=== PATIENT | male | born 1955 | race Caucasian/White ===

== ENCOUNTER 2016-11-19 15:12 | Inpatient (IN) | payer BC ==
--- NOTE | 2016-11-19 16:11 | XRAY Preliminary Report ---
Exam: XR Chest 1 View IMPRESSION: Mild cardiomegaly, otherwise unremarkable single view chest. [facility] SITE ID: [id number]
--- NOTE | 2016-11-19 16:13 | XRAY Report ---
EXAM: CHEST RADIOGRAPHY EXAM DATE: 11/19/2016 03:57 PM. CLINICAL HISTORY: Dyspnea. COMPARISON: 11/08/2009. TECHNIQUE: 1 view. FINDINGS: Lungs/Pleura: No focal opacities evident. No pleural effusion. No pneumothorax. Mediastinum: Mild cardiomegaly. Other: No bony abnormality noted. IMPRESSION: Mild cardiomegaly, otherwise unremarkable single view chest. [facility] Referring Provider Line: [phone] SITE ID: [id number]
--- NOTE | 2016-11-19 16:18 | ED Physician Documentation ---
PD HPI DYSPNEA - Stated complaint Stated Complaint: SOA - Chief complaint Chief Complaint: Resp - History obtained from History obtained from: Patient, Family - History of Present Illness Timing - onset: How many days ago (2) Timing - onset during: Sleep Timing - duration: Days (2) Timing - details: Gradual onset Pain level max: 0 Pain level now: 0 Inciting event(s): URI (rhinorrhea, congestion) Improved by: BiPAP / CPAP (wears CPAP at night) Worsened by: Exertion, Coughing, Allergens Associated symptoms: Cough (dry), Wheezing. No: Fever, Hemoptysis, Chest pain / discomfort, Palpitations, Diaphoresis, Bilateral edema Similar symptoms before: Diagnosis (asthma) Recently seen: Not recently seen - Additional information Additional information: Patient states that he feels like he is having a hard time breathing today. Has had rhinorrhea and congestion for the past 2 days. Has not taken anything at home. Has had albuterol inhalers in the past for this. No fevers. No chest pain. He states that his doctor did increase his metoprolol from 50 mg to 100 mg daily last week. Has felt slightly lightheaded. Review of Systems Ten Systems: 10 systems reviewed and negative Constitutional: denies: Fever, Chills Nose: reports: Rhinorrhea / runny nose, Congestion Respiratory: reports: Dyspnea, Wheezing GI: denies: Abdominal Pain, Nausea, Vomiting, Diarrhea Skin: denies: Rash Musculoskeletal: denies: Neck pain, Back pain Neurologic: denies: Focal weakness, Numbness, Confused, Altered mental status, Headache PD PAST MEDICAL HISTORY - Past Medical History Past Medical History: Yes Cardiovascular: Hypertension, High cholesterol, [place] Respiratory: None Neuro: None Endocrine/Autoimmune: Type 2 diabetes GI: None : None HEENT: None Psych: None Musculoskeletal: None Derm: None - Past Surgical History Past Surgical History: Yes Cardiovascular: Coronary stent - Present Medications Home Medications: Ambulatory Orders Medication Instructions Recorded Confirmed Insulin Lispro [Humalog] 28 units SQ QID 02/04/13 11/19/16 Losartan [Cozaar] 100 mg PO DAILY 02/04/13 11/19/16 Spironolactone [Aldactone] 25 mg PO DAILY 02/04/13 02/04/13 Trazodone HCl 50 mg PO HS 02/04/13 11/19/16 Amitriptyline HCl 50 mg PO QPM 11/21/15 11/19/16 Amlodipine Besylate 5 mg PO DAILY 11/21/15 11/19/16 Aspirin [Zoie] 325 mg PO DAILY 11/21/15 11/19/16 Atorvastatin Calcium 80 mg PO DAILY 11/21/15 11/19/16 Esomeprazole Magnesium 40 mg PO DAILY 11/21/15 11/19/16 Metoprolol Succinate 50 mg PO BID 11/21/15 11/19/16 - Allergies Allergies/Adverse Reactions: Allergies Allergy/AdvReac Type Severity Reaction Status Date / Time Sulfa (Sulfonamide Allergy unknown Verified 11/19/16 15:21 Antibiotics) - Social History Does the pt smoke?: No Smoking Status: Never smoker Does the pt drink ETOH?: Yes Does the pt have substance abuse?: No - Immunizations Immunizations are current?: No Immunizations: TDAP >10years/unknown - POLST Patient has POLST: No PD ED PE NORMAL - Vitals Vital signs reviewed: Yes - General General: Alert and oriented X 3, No acute distress - HEENT HEENT: Moist mucous membranes, Pharynx benign - Neck Neck: Supple, no meningeal sign - Cardiac Cardiac: RRR - Respiratory Respiratory: No respiratory distress, Other (Decreased breath sounds bilaterally with mild wheeze) - Abdomen Abdomen: Normal bowel sounds, Non tender, Non distended - Back Back: No CVA TTP, No spinal TTP - Derm Derm: Warm and dry, No rash - Extremities Extremities: No calf tenderness / cord - Neuro Neuro: Alert and oriented X 3 - Psych Psych: Normal mood, Normal affect Results - Vitals Vitals: Vital Signs - 24 hr 11/19/16 11/19/16 11/19/16 15:19 16:08 17:20 Temperature 36.1 C L Heart Rate 52 L 47 L 49 L Respiratory 20 24 27 H Rate Blood Pressure 186/75 H O2 Saturation 96 93 Oxygen O2 Source Room air - EKG (time done) 1541 Rate: Rate (enter#) (51) Rhythm: Other (sinus arrhythmia) [place]: Normal Intervals: Normal [place] QRS: Normal Ischemia: T wave inversion (I, aVL) Compare to prior EKG: Old EKG unavailable 1830 Rate: Rate (enter#) (35) Rhythm: Sinus bradycardia [place]: Normal Intervals: Normal [place] QRS: Normal Ischemia: Normal ST segments Computer interpretation: Agree with computer - Labs Labs: Laboratory Tests 11/19/16 11/19/16 11/19/16 16:00 16:00 16:00 WBC 9.8 RBC 3.87 L Hgb 11.5 L Hct 34.5 L MCV 89.1 MCH 29.8 MCHC 33.4 RDW 13.3 Plt Count 208 MPV 8.6 Neut # 7.4 H Lymph # 1.5 [place] # 0.7 Eos # 0.1 Baso # 0.1 Absolute Nucleated RBC 0.00 Nucleated RBCs 0.0 VBG pH VBG pCO2 VBG pO2 VBG HCO3 VBG Total CO2 VBG O2 Saturation VBG Base Excess Sodium 131 L Potassium 6.5 H* Chloride 100 L Carbon Dioxide 20 L Anion Gap 11.0 BUN 37 H Creatinine 2.3 H Estimated GFR (MDRD) 29 L Glucose 542 H* Calcium 8.7 Total Bilirubin 0.7 AST 20 ALT 22 Alkaline Phosphatase 68 Troponin I 0.04 B-Natriuretic Peptide Total Protein 7.1 Albumin 3.5 Globulin 3.6 Albumin/Globulin Ratio 1.0 Lipase 11 L Serum Ketones 11/19/16 11/19/16 11/19/16 16:00 16:00 17:01 WBC RBC Hgb Hct MCV MCH MCHC RDW Plt Count MPV Neut # Lymph # [place] # Eos # Baso # Absolute Nucleated RBC Nucleated RBCs VBG pH 7.367 VBG pCO2 31.0 L VBG pO2 184.4 H VBG HCO3 17.4 L VBG Total CO2 18.3 L VBG O2 Saturation 98.9 H VBG Base Excess -6.8 L Sodium Potassium Chloride Carbon Dioxide Anion Gap BUN Creatinine Estimated GFR (MDRD) Glucose Calcium Total Bilirubin AST ALT Alkaline Phosphatase Troponin I B-Natriuretic Peptide 463 H Total Protein Albumin Globulin Albumin/Globulin Ratio Lipase Serum Ketones MODERATE H - Rads (name of study) cxr Radiology: Prelim report reviewed, EMP read contemporaneously, See rad report ( Mild cardiomegaly, otherwise unremarkable single view chest. ) PD MEDICAL DECISION MAKING - ED course Complexity details: reviewed old records, reviewed results, re-evaluated patient , considered differential, d/w patient, d/w family, d/w netsuite consultant ED course: Patient is a 61-year-old gentleman who presents to the emergency department is found to be in mild DKA, sinus bradycardia, likely secondary to metoprolol and amlodipine use. Also found to be in acute renal failure and hyperkalemia. He was treated with DuoNeb for the wheezing which resolved. Given insulin for the mild DKA. Also given IV hydration. Discussed the case with the hospitalist, Dr. Montgomery who accepts the patient. This document was made in part using voice recognition software. While efforts are made to proofread this document, sound alike and grammatical errors may occur. Departure - Departure Disposition: 64 [facility] DC/Xfer Clinical Impression: Hyperglycemia, Bradycardia, Hyperkalemia Acute renal failure Qualifiers: Acute renal failure type: unspecified Qualified Code(s): N17.9 - Acute kidney failure, unspecified DKA (diabetic ketoacidosis) Qualifiers: Diabetes mellitus type: due to underlying condition Diabetes mellitus complication detail: without coma Qualified Code(s): E08.10 - Diabetes mellitus due to underlying condition with ketoacidosis without coma Condition: Stable Discharge Date/Time: 11/19/16 18:33
[2016-11-19] MEDS ORDERED: IPRATROPIUM/ALBUTEROL 3 ML NEB INH STA (16:25)
[2016-11-19 16:33] LABS: BASOPHILS # (AUTO) 0.1 10^3/uL (0.0-0.1); BASOPHILS % (AUTO) 1.1 %; EOSINOPHILS # (AUTO) 0.1 10^3/uL (0.0-0.7); EOSINOPHILS % (AUTO) 1.3 %; HCT - HEMATOCRIT 34.5 % (42.0-52.0); HGB - HEMOGLOBIN 11.5 g/dL (14.0-18.0); LYMPHOCYTES # (AUTO) 1.5 10^3/uL (1.5-3.5); LYMPHOCYTES % (AUTO) 15.4 %; MEAN CORPUSCULAR HEMOGLOBIN 29.8 pg (27.0-31.0); MEAN CORPUSCULAR HGB CONC 33.4 g/dL (32.0-36.0); MEAN CORPUSCULAR VOLUME 89.1 fL (80.0-94.0); MEAN PLATELET VOLUME 8.6 fL (7.4-11.4); MONOCYTES # (AUTO) 0.7 10^3/uL (0.0-1.0); MONOCYTES % (AUTO) 6.9 %; NEUTROPHILS # (AUTO) 7.4 10^3/uL (1.5-6.6); NEUTROPHILS % (AUTO) 75.3 %; RED BLOOD COUNT 3.87 10^6/uL (4.70-6.10); RED CELL DISTRIBUTION WIDTH 13.3 % (12.0-15.0); UNCORRECTED WHITE BLOOD COUNT 9.8 x10^3/uL; WHITE BLOOD COUNT 9.8 x10^3/uL (4.8-10.8)
[2016-11-19 16:37] LABS: BILIRUBIN,TOTAL 0.7 mg/dL (0.2-1.0); CALCIUM 8.7 mg/dL (8.5-10.3); CREATININE 2.3 mg/dL (0.6-1.2); TOTAL PROTEIN 7.1 g/dL (6.7-8.2)
[2016-11-19 16:38] LABS: POTASSIUM 6.5 mmol/L (3.5-5.0)
[2016-11-19] MEDS ORDERED: INSULIN REGULAR HUMAN 100 UNIT/1 ML 10 ML MDV SUBQ STA (16:44)
[2016-11-19] MEDS ORDERED: SODIUM CHLORIDE 0.9% 1,000 ML IV ONE ×2 (16:44)
[2016-11-19] MEDS ORDERED: INSULIN REGULAR HUMAN 100 UNIT/1 ML 10 ML MDV ONE (16:49)
[2016-11-19] MEDS ORDERED: IPRATROPIUM/ALBUTEROL 3 ML NEB INH ONE (16:53)
[2016-11-19] MEDS ORDERED: ACETAMINOPHEN 325 MG TABLET PO STA (17:01)
[2016-11-19 17:11] LABS: VBG BASE EXCESS -6.8 mmol/L (-2 - +2); VBG OXYGEN SATURATION 98.9 % (60-80); VBG PH 7.367 (7.31-7.41); VBG TOTAL CO2 18.3 mmol/L (24-29)
[2016-11-19] MEDS ORDERED: ACETAMINOPHEN 325 MG TABLET PO ONE (17:14)
[2016-11-19] MEDS ORDERED: SODIUM CHLORIDE FLUSH 0.9% 10 ML SYRINGE IVP PRN (17:25)
[2016-11-19] MEDS ORDERED: ONDANSETRON 4 MG/2 ML VIAL IVP PRN (17:25)
[2016-11-19] MEDS ORDERED: ONDANSETRON ODT 4 MG TABLET TL PRN (17:25)
[2016-11-19] MEDS ORDERED: INSULIN REGULAR HUMAN 100 UNIT in SODIUM CHLORIDE 0.9% 100ML 99 ML IV SCH (18:00)
[2016-11-19] MEDS: SODIUM CHLORIDE 0.9% 1,000 ML IV SCH (18:50)
[2016-11-19] MEDS: HYDROcod/ACETAM 5/325 MG TABLET PO PRN (19:03)
[2016-11-19 19:09] LABS: CALCIUM 8.3 mg/dL (8.5-10.3); CREATININE 2.3 mg/dL (0.6-1.2); MAGNESIUM 2.2 mg/dL (1.7-2.8)
[2016-11-19 19:11] LABS: POTASSIUM 7.2 mmol/L (3.5-5.0)
[2016-11-19] MEDS: ALBUTEROL NEB 2.5 MG/3 ML INH PRN (20:20)
[2016-11-19 20:22] LABS: HEMOGLOBIN A1C 0.9 g/dL
[2016-11-19 21:12] LABS: CALCIUM 8.1 mg/dL (8.5-10.3); CREATININE 2.1 mg/dL (0.6-1.2); MAGNESIUM 1.9 mg/dL (1.7-2.8); POTASSIUM 4.4 mmol/L (3.5-5.0)
[2016-11-19 22:50] LABS: BUN - BLOOD UREA NITROGEN 33 mg/dL (6-20); CALCIUM 8.1 mg/dL (8.5-10.3); CARBON DIOXIDE - CO2 21 mmol/L (21-32); CHLORIDE 108 mmol/L (101-111); CREATININE 1.9 mg/dL (0.6-1.2); GFR - MDRD 36 (>89); GLUCOSE 257 mg/dL (70-100); POTASSIUM 4.3 mmol/L (3.5-5.0); SODIUM 137 mmol/L (135-145)
[2016-11-19 22:56] LABS: PHOSPHORUS 2.5 mg/dL (2.5-4.6)
[2016-11-19] MEDS: INSULIN GLARGINE 300 UNIT/3 ML PEN SUBQ SCH (23:31)
[2016-11-19] MEDS: SPIRONOLACTONE 25 MG TABLET PO SCH (23:35)
[2016-11-19] MEDS: SODIUM CHLORIDE FLUSH 0.9% 10 ML SYRINGE IVP SCH (23:35)
[2016-11-19] MEDS: traZODone 50 MG TABLET PO SCH (23:36)
[2016-11-19] MEDS: LOSARTAN 50 MG TABLET PO SCH (23:36)
[2016-11-19] MEDS: amLODIPine 5 MG TABLET PO SCH (23:37)
--- NOTE | 2016-11-20 02:07 | PROVIDER PROGRESS NOTE ---
Assessment/Plan - Current Meds Current Meds: Current Medications Generic Name Dose Route Start Last Admin Trade Name Freq PRN Reason Stop Dose Admin Acetaminophen/Hydrocodone Bitart 1 tab 11/19/16 17:25 11/19/16 19:03 [place] 5/325 PO 1 tab Q4HR PRN Administration Pain 5 to 7 Albuterol 2.5 mg 11/19/16 17:25 11/19/16 20:20 INH 2.5 mg Q4HR PRN Administration Wheezing Amlodipine Besylate 5 mg 11/19/16 23:00 11/19/16 23:37 Norvasc PO 5 mg DAILY ELLIOT Administration Sodium Chloride 1,000 mls @ 100 mls/hr 11/19/16 18:00 11/19/16 18:50 Normal Saline 0.9% IV 100 mls/hr .Q10H ELLIOT Administration Insulin Glargine 80 unit 11/19/16 23:00 11/19/16 23:31 Lantus Solostar SUBQ 80 unit BID ELLIOT Administration Losartan Potassium 100 mg 11/19/16 23:00 11/19/16 23:36 Cozaar PO 100 mg DAILY ELLIOT Administration Sodium Chloride 10 ml 11/19/16 22:00 11/19/16 23:35 Normal Saline Flush 0.9% IVP 10 ml Q8HR ELLIOT Administration Spironolactone 25 mg 11/19/16 23:00 11/19/16 23:35 Aldactone PO 25 mg DAILY ELLIOT Administration Trazodone HCl 50 mg 11/19/16 22:41 11/19/16 23:36 Desyrel PO 50 mg QPM ELLIOT Administration - Lab Result Fish Bone Diagrams: 11/19/16 16:00 11/19/16 22:35 - Additional Planning My Orders: My Active Orders 11/19/16 22:34 Blood Glucose Checks - Eating [RC] 0800,1200,1700,2100 Initiate Hypoglycemia Protocol [RC] .protocol 11/19/16 22:41 traZODone [Desyrel] 50 mg PO QPM 11/19/16 23:00 Insulin Glargine [Lantus Solostar] 80 unit SUBQ BID Losartan [Cozaar] 100 mg PO DAILY Spironolactone [Aldactone] 25 mg PO DAILY amLODIPine [Norvasc] 5 mg PO DAILY 11/19/16 Breakfast Carb-controlled Diet [DIET] 11/20/16 01:03 Home CPAP/BiPAP [RC] .ONCE 11/20/16 08:00 Insulin Aspart [NovoLOG] 2 - 10 unit SUBQ 0800,1200,1700,2100 Insulin Aspart [NovoLOG] 30 unit SUBQ TIDWM 11/20/16 09:00 Aspirin [Zoie] 325 mg PO DAILY Atorvastatin [Lipitor] 80 mg PO DAILY 11/20/16 21:00 Amitriptyline [Elavil] 50 mg PO QPM Objective Vital Signs: Vital Signs - 24 hr 11/19/16 11/19/16 11/19/16 17:45 17:48 18:00 Temperature Heart Rate 45 L 42 L Heart Rate [ Monitoring electrodes] Respiratory 23 24 Rate Blood Pressure 200/74 H 192/58 H Blood Pressure [Left Brachial artery] O2 Saturation 88 L 93 93 11/19/16 11/19/16 11/19/16 18:45 19:06 20:00 Temperature 36.8 C Heart Rate Heart Rate [ 45 L 45 L 54 L Monitoring electrodes] Respiratory 25 H 24 23 Rate Blood Pressure Blood Pressure 194/65 H 190/64 H 172/70 H [Left Brachial artery] O2 Saturation 95 94 94 11/19/16 11/19/16 11/19/16 20:20 21:00 22:00 Temperature Heart Rate 60 Heart Rate [ 65 68 Monitoring electrodes] Respiratory 20 24 20 Rate Blood Pressure Blood Pressure 193/67 H 183/67 H [Left Brachial artery] O2 Saturation 94 97 11/19/16 11/20/16 11/20/16 23:00 00:05 01:00 Temperature 36.6 C Heart Rate Heart Rate [ 64 63 60 Monitoring electrodes] Respiratory 20 20 16 Rate Blood Pressure Blood Pressure 172/66 H 162/66 H 142/58 H [Left Brachial artery] O2 Saturation 95 94 94 Oxygen O2 Source CPAP I&O (Last 24 Hrs): Intake and Output Totals x24h 11/18/16 11/19/16 11/20/16 23:59 23:59 23:59 Intake Total 444 308 Output Total 260 Balance 184 308 - Results Results: Laboratory Results WBC 9.8 x10^3/uL (4.8-10.8) 11/19/16 16:00 RBC 3.87 10^6/uL (4.70-6.10) L 11/19/16 16:00 Hgb 11.5 g/dL (14.0-18.0) L 11/19/16 16:00 Hct 34.5 % (42.0-52.0) L 11/19/16 16:00 MCV 89.1 fL (80.0-94.0) 11/19/16 16:00 MCH 29.8 pg (27.0-31.0) 11/19/16 16:00 MCHC 33.4 g/dL (32.0-36.0) 11/19/16 16:00 RDW 13.3 % (12.0-15.0) 11/19/16 16:00 Plt Count 208 10^3/uL (130-450) 11/19/16 16:00 MPV 8.6 fL (7.4-11.4) 11/19/16 16:00 Neut # 7.4 10^3/uL (1.5-6.6) H 11/19/16 16:00 Lymph # 1.5 10^3/uL (1.5-3.5) 11/19/16 16:00 [place] # 0.7 10^3/uL (0.0-1.0) 11/19/16 16:00 Eos # 0.1 10^3/uL (0.0-0.7) 11/19/16 16:00 Baso # 0.1 10^3/uL (0.0-0.1) 11/19/16 16:00 Absolute Nucleated RBC 0.00 x10^3/uL 11/19/16 16:00 Nucleated RBCs 0.0 /100WBC 11/19/16 16:00 VBG pH 7.367 (7.31-7.41) 11/19/16 17:01 VBG pCO2 31.0 mmHg (41-51) L 11/19/16 17:01 VBG pO2 184.4 mmHg (25-47) H 11/19/16 17:01 VBG HCO3 17.4 mmol/L (23-28) L 11/19/16 17:01 VBG Total CO2 18.3 mmol/L (24-29) L 11/19/16 17:01 VBG O2 Saturation 98.9 % (60-80) H 11/19/16 17:01 VBG Base Excess -6.8 mmol/L (-2 - +2) L 11/19/16 17:01 Sodium 137 mmol/L (135-145) 11/19/16 22:35 Potassium 4.3 mmol/L (3.5-5.0) 11/19/16 22:35 Chloride 108 mmol/L (101-111) 11/19/16 22:35 Carbon Dioxide 21 mmol/L (21-32) 11/19/16 22:35 Anion Gap 8.0 (6-13) 11/19/16 22:35 BUN 33 mg/dL (6-20) H 11/19/16 22:35 Creatinine 1.9 mg/dL (0.6-1.2) H 11/19/16 22:35 Estimated GFR (MDRD) 36 (>89) L 11/19/16 22:35 Glucose 257 mg/dL (70-100) H 11/19/16 22:35 POC Whole Bld Glucose 190 mg/dL (70 - 100) H 11/19/16 23:35 Glycated Hemoglobin 9.1 % (4.6-6.2) H 11/19/16 18:23 Estim Average Glucose 214 (70-100) H 11/19/16 18:23 Calcium 8.1 mg/dL (8.5-10.3) L 11/19/16 22:35 Ionized Calcium YES 11/19/16 22:35 Phosphorus 2.5 mg/dL (2.5-4.6) 11/19/16 22:35 Magnesium 2.0 mg/dL (1.7-2.8) 11/19/16 22:35 Total Bilirubin 0.7 mg/dL (0.2-1.0) 11/19/16 16:00 AST 20 IU/L (10-42) 11/19/16 16:00 ALT 22 IU/L (10-60) 11/19/16 16:00 Alkaline Phosphatase 68 IU/L (42-121) 11/19/16 16:00 Troponin I 0.04 ng/mL (<0.49) 11/19/16 16:00 B-Natriuretic Peptide 463 pg/mL (5-100) H 11/19/16 16:00 Total Protein 7.1 g/dL (6.7-8.2) 11/19/16 16:00 Albumin 3.5 g/dL (3.2-5.5) 11/19/16 16:00 Globulin 3.6 g/dL (2.1-4.2) 11/19/16 16:00 Albumin/Globulin Ratio 1.0 (1.0-2.2) 11/19/16 16:00 Lipase 11 U/L (22-51) L 11/19/16 16:00 Serum Ketones MODERATE (NEGATIVE) H 11/19/16 16:00
--- NOTE | 2016-11-20 02:19 | HISTORY & PHYSICAL EXAMINATION ---
Chief Complaint - Chief Complaint Chief Complaint: difficulty breathing History of Present Illness - Admitted From Admitted From:: Emergency department - History Obtained From Records Reviewed: yes History obtained from: patient Exam Limitations: none - History of Present Illness HPI Comment/Other: Patient is a 61-year-old gentleman with a past medical history significant for hypertension, hyperlipidemia, coronary artery disease status post 3 stents, poorly controlled diabetes, obstructive sleep apnea on CPAP, peripheral neuropathy, retinopathy, chronic kidney disease and asthma who presented to the emergency department with a chief complaint of difficulty breathing. The patient states he was in his normal state of health until he woke up this morning he states that when he woke up he felt as though his nose is plugged up and he could not breathe. He states he was able to take short breaths but could not get a deep breath. He denies having had any fevers or chills but does admit to some chest pain. The patient states that the pain occurs when he takes a deep breath and it keeps him from taking deeper breaths. The patient denies any runny nose or sore throat he denies any myalgias or generalized weakness. The patient did admit to chronic constipation and stated that sometimes he will go off week without having a bowel movement and then he'll have to go multiple times a day. The patient denied any headaches, blurred vision, stiff neck or focal neurologic deficits. The patient denied any polydipsia or polyuria. The patient states that he is very noncompliant with his medications. He states that he takes his blood pressure medications when he feels like it and is not taking his insulin. The patient is supposed to be on Humalog U 500 four times a day but states he takes it maybe one or 2 times. On presentation to the emergency department the patient was afebrile but he was very hypertensive with blood pressure in the 180s to 200 systolic. The patient otherwise had some mild hypoxia down to 88% on room air and was mildly tachypneic but did not appear to be in any significant distress. The patient's initial lab work revealed that he was quite dehydrated as he had a sodium of 131 , potassium of 6.5, creatinine of 2.3 increased from a baseline of 1.3 just one year earlier and had a blood glucose of 542. The patient was not in DKA as his pH was 7.36, he did have moderate serum ketones but had no anion gap. Attempt was made to hydrate the patient in the emergency department with 1 L bolus of normal saline he was also given subcutaneous insulin and started on an insulin drip. The patient's labs were repeated and his potassium was up to 7.2 creatinine had not improved and glucose was still 509. It did not appear as though the patient could be treated in the emergency department for his dehydration and acute renal failure with hyperglycemia. Therefore he was placed in observation in the ICU as he was on an insulin drip. From a respiratory standpoint the patient did have some wheezing and was treated with a nebulizer treatment but remained hypoxic however his chest x-ray did not reveal any acute process. Review of Systems - Constitutional Constitutional: reports: Poor appetite. denies: Fatigue, Fever, Chills, Malaise , Weakness, Diaphoresis, Night sweats, Weight gain, Weight loss - Eyes Eyes: reports: Blurred vision, Spots in vision, Vision loss. denies: Pain, Irritation, Field loss, Dipolpia - Ears, Nose & Throat Ears, Nose & Throat: reports: Nasal discharge, Nasal congestion, Postnasal drainage. denies: Ear pain, Hearing loss, Hearing aids, Tinnitus, Vertigo, Nasal pain, Nosebleeds, Nasal obstruction, Sore throat, Hoarseness, Mouth lesions, Bleeding gums - Cardiovascular Cariovascular: reports: Chest pain, Exertional dyspnea, Decr. exercise tolerance. denies: Irregular heart rate, Palpitations, Edema, Lightheadedness, Syncope, Orthopnea - Respiratory Respiratory: reports: Cough, Sputum production, Wheezing, SOB at rest, SOB with exertion, Apnea, Pleuritic pain. denies: Snoring, Hemoptysis, Orthopnea, Stridor - Gastrointestinal Gastrointestinal: reports: Constipation, Poor appetite. denies: Abdominal pain , Abdominal distention, Diarrhea, Change in bowel habits, Black stools, Bloody stools, Nausea, Vomiting, Bile emesis, Coffee grounds emesis, Bloating - Genitourinary Genitourinary: denies: Dysuria, Frequency, Urgency, Hematuria, Incontinence, Flank pain, Nocturia - Musculoskeletal Musculoskeletal: denies: Muscle pain, Back pain, Muscle aches, Stiffness, Limited range of motion, Muscle weakness, Joint pain, Joint swelling - Integumentary Integumentary: denies: Rash, Pruritis, Lesions, Dryness - Neurological Neurological: denies: General weakness, Focal weakness, Headache, Dizziness, Numbness, Abnormal gait, Seizures - Psychiatric Psychiatric: denies: Depression, Anxiety - Endocrine Endocrine: denies: Polyuria, Polydypsia, Polyphagia, Intolerance to cold, Intolerance to heat - Hematologic/Lymphatic Hematologic/Lymphatic: denies: Anemia, Bruising, Petechiae, Lymphadenopathy History - Past Medical History Cardiovascular: reports: Hypertension, High cholesterol, Coronary artery disease (History of 3 stents ), DE (CAD with 3 stents) Respiratory: reports: Asthma, Shortness of breath, Sleep apnea, CPAP use Neuro: reports: Peripheral neuropathy Endocrine/Autoimmune: reports: Type 2 diabetes GI: reports: Ulcers, Chronic constipation : reports: Renal insuffiency HEENT: reports: Chronic hearing loss, Other (Diabetic Retinopathy) Psych: reports: ADD/ADHD Musculoskeletal: reports: Fatigue Derm: reports: None MRSA Hx?: Yes - Past Surgical History Ortho: reports: Shoulder arthroplasty Cardiovascular: reports: Coronary stent HEENT: reports: Tonsil/Adenoidectomy - Family & Social History Family History: Mother: Cancer (Mom with Breast Ca), Diabetes, Type 2 ( of complications of DM), Father: CAD ( of a heart attack), Brother: ( Not from any medical illinesses), Other family: Alcoholism (Daughter) Living arrangement: At home Living Situation: With spouse/s.o. Social History Notes: The patient lives in [facility] with his second he has lived there for 17 years. He has been to his second since 2002. He is originally from [facility]. He is retired. He has one daughter and one son from a previous marriage. He has 2 stepchildren. He has never smoked. He drinks about 2 glasses of wine weekly. He does smoke marijuana daily he states he takes 2-3hits a day. - Substance History Use: Uses substance without health or social issues: Alcohol, Cannabis Abuse: Recurrent use of substance despite neg consequences: NONE Dependence: Experiences withdrawal or developed tolerances: NONE - POLST Patient has POLST: No POLST Status: Full Code Meds/Allgy - Home Medications Home Medications: Ambulatory Orders Medication Instructions Recorded Confirmed Insulin Lispro [Humalog] 28 units SQ QID 02/04/13 11/19/16 Losartan [Cozaar] 100 mg PO DAILY 02/04/13 11/19/16 Spironolactone [Aldactone] 25 mg PO DAILY 02/04/13 02/04/13 Trazodone HCl 50 mg PO HS 02/04/13 11/19/16 Amitriptyline HCl 50 mg PO QPM 11/21/15 11/19/16 Amlodipine Besylate 5 mg PO DAILY 11/21/15 11/19/16 Aspirin [Zoie] 325 mg PO DAILY 11/21/15 11/19/16 Atorvastatin Calcium 80 mg PO DAILY 11/21/15 11/19/16 Esomeprazole Magnesium 40 mg PO DAILY 11/21/15 11/19/16 Metoprolol Succinate 50 mg PO BID 11/21/15 11/19/16 - Allergies Allergies/Adverse Reactions: Allergies Allergy/AdvReac Type Severity Reaction Status Date / Time Sulfa (Sulfonamide Allergy unknown Verified 11/19/16 15:21 Antibiotics) Exam - Vital Signs Reviewed Vital Signs: Yes Vital Signs: Vital Signs x48h Temp Pulse Pulse Resp BP Pulse Ox 11/20/16 01:00 60 16 142/58 H 94 11/20/16 00:05 36.6 C 63 20 162/66 H 94 11/19/16 23:00 64 20 172/66 H 95 11/19/16 22:00 68 20 183/67 H 97 11/19/16 21:00 65 24 193/67 H 94 11/19/16 20:20 60 20 11/19/16 20:00 54 L 23 172/70 H 94 11/19/16 19:06 36.8 C 45 L 24 190/64 H 94 11/19/16 18:45 45 L 25 H 194/65 H 95 - Physical Exam General Appearance: positive: No acute distress, Alert, Other (Obese) Eyes Bilateral: positive: Normal inspection, PERRL, EOMI, No lid inflammation, Conjunctivae nml, No scleral icterus ENT: positive: ENT inspection nml, Pharynx nml, Dry mucous membranes. negative : Purulent nasal drainage, Pharyngeal erythema, Oral lesions Neck: positive: Nml inspection, Thyroid nml, No JVD, Trachea midline. negative : Thyromegaly, Lymphadenopathy (R), Lymphadenopathy (L) Respiratory: positive: Chest non-tender, No respiratory distress, Wheezes (Mild bilateral scattered). negative: Rales, Rhonchi Cardiovascular: positive: Regular rate & rhythm, No murmur, No gallop Peripheral Pulses: positive: 2+ Abdomen: positive: Non-tender, No organomegaly, Nml bowel sounds, No distention , Other (Obese). negative: Guarding, Rebound, Hepatomegaly Back: positive: Nml inspection. negative: CVA tenderness (R), CVA tenderness (L ) Skin: positive: Color nml, No rash, Warm. negative: Cyanosis, Pallor Extremities: positive: Non-tender, Full ROM, Nml appearance, Pedal edema ( Bilateral ankle edema) Neurologic/Psychiatric: positive: Oriented x3, CN's nml (2-12), Motor nml, Sensation nml, Mood/affect nml Conclusion/Plan - Problem List (1) Dehydration Conclusion/Plan: On presentation to the emergency department the patient appeared very dry. Is is likely secondary to persistent hyper glycemia as the patient's glucose was in the 500s. Also the patient admitted to decreased appetite and decreased oral intake over the last day. Patient denied any diarrhea nausea or vomiting. Patient's lab work was consistent with marked dehydration as his sodium was 131 , potassium was elevated to 6.5 his chloride was low down to 100 and he appear to have acute kidney injury with a creatinine of 2.3 from a baseline of 1.3. The patient also appeared very dry on examination. Plan: IV fluids Encourage oral fluids Placed on insulin drip to correct hyperglycemia Monitor electrolytes (2) MICHAELLE (acute kidney injury) Conclusion/Plan: Patient's baseline creatinine is 1.3 from 1 year ago Patient has poorly controlled diabetes and has chronic kidney disease on presentation his creatinine is 2.3 this could be progression of his EKG however it appears more likely to be acute kidney injury. The patient appears to have prerenal azotemia as he does have an elevated BUN low sodium elevated glucose and appears very dry on examination. Plan: Give IV fluids aggressively Hold any nephrotoxic agents Monitor creatinine closely if not improving with IV fluid will get renal ultrasound to rule out obstruction Monitor potassium if not improving this is an indication for dialysis although patient is making good urine and potassium will likely improve. (3) Hyperkalemia Conclusion/Plan: Patient presented with hyperkalemia initial potassium was 6.5. Patient was given IV fluids and place on insulin drip and repeat potassium was still 7.2. Hyperkalemia is likely multifactorial secondary to acute kidney injury, severe hyperglycemia, use of potassium sparing diuretics and use of angiotensin receptor samantha at home for hypertension. EKG shows peaked T waves in the anterior leads Plan: Hold spironolactone and Cozaar Start insulin drip Give calcium gluconate to stabilize myocardium Consider Kayexalate if potassium not improving Monitor potassium closely Consider dialysis and transfer if potassium not improving (4) Hyperglycemia due to type 2 diabetes mellitus Conclusion/Plan: The patient presents with dehydration and severely elevated glucose up to 542 on presentation. Patient has acute kidney injury with hyperkalemia and hyponatremia. The patient does not have polyuria or polydipsia there is positive serum ketones but pH is normal and there is no anion gap. Patient is mentating normally his does not appear to be hyper osmolar nonketotic hyperglycemia or DKA Hyperglycemia is likely secondary to noncompliance with insulin and diet. Plan: Given patient's severe hyperkalemia and acute kidney injury we will place the patient on an insulin drip and observe in the ICU Once hyperkalemia improves and blood sugars are less than 300 we will stop insulin drip and start on subcutaneous insulin. Patient on Humalog U 500 4 times a day at home but noncompliant Once blood sugars improve we will place patient on Lantus 80 units twice a day and moderate to high dose sliding scale insulin Diabetic diet Nutrition consult Counseling on need for medication compliance. 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 Patient will be continued on home dose of amlodipine however we'll be holding patient's Aldactone and Cozaar until hyperkalemia has resolved. Monitor blood pressure closely Patient counseled on need for medication compliance Qualifiers: Hypertension type: essential hypertension Qualified Code(s): I10 - Essential (primary) hypertension (6) Hyponatremia Conclusion/Plan: Patient appears to have hypovolemic hyponatremia as he is dehydrated on examination and on lab work. Also there is some pseudohyponatremia secondary to severe hyperglycemia Patient will be given IV fluids and we will recheck his sodium (7) URI (upper respiratory infection) Conclusion/Plan: The patient initially presented for difficulty breathing cough and shortness of air. Patient was mildly hypoxic on presentation, tachypnea and had some wheezing on examination Chest x-ray negative for acute infiltrate likely viral Patient had improvement with nebulizer treatment Patient will be given supportive care with nebs and supplemental oxygen while hospitalized Qualifiers: URI type: unspecified URI Qualified Code(s): J06.9 - Acute upper respiratory infection, unspecified (8) Asthma Conclusion/Plan: The patient had mild wheezing on presentation with some mild shortness of breath and mild hypoxia Patient likely has a mild asthma exacerbation secondary to a URI Plan: Albuterol when necessary Supplemental oxygen Will hold off on steroids unless patient decompensates Qualifiers: Asthma severity: mild intermittent Asthma complication type: uncomplicated Qualified Code(s): J45.20 - Mild intermittent asthma, uncomplicated (9) CONNIE on CPAP Conclusion/Plan: continue home CPAP (10) Prophylactic use of low molecular weight heparin for venous thromboembolism Conclusion/Plan: Place on lovenox while hospitalized - Lab Results Lab results reviewed: Yes Marcos Bones: 11/19/16 16:00 11/19/16 22:35 - Diagnostic Imaging Results Diagnostic Imaging Results: positive: Final report reviewed - EKG Results EKG Interpreted Independently: Yes EKG Comparison: Changed from prior EKG EKG Findings: peaked T waves in anterior leads - Other Other Results/Comments: chest x-ray negative for acute infiltrate Issues/Core Measures - Anticipated LOS Anticipated Stay Length: Less than 2 midnights - DVT/VTE - Prophylaxis VTE/DVT Prophylaxis med ordered at admit?: Yes
[2016-11-20] MEDS: SODIUM CHLORIDE 0.9% 1,000 ML IV SCH (04:24)
[2016-11-20 06:08] LABS: BASOPHILS % (AUTO) 0.4 %; EOSINOPHILS # (AUTO) 0.2 10^3/uL (0.0-0.7); EOSINOPHILS % (AUTO) 1.8 %; HCT - HEMATOCRIT 27.8 % (42.0-52.0); HGB - HEMOGLOBIN 9.6 g/dL (14.0-18.0); LYMPHOCYTES # (AUTO) 1.9 10^3/uL (1.5-3.5); LYMPHOCYTES % (AUTO) 18.7 %; MEAN CORPUSCULAR HEMOGLOBIN 30.4 pg (27.0-31.0); MEAN CORPUSCULAR HGB CONC 34.6 g/dL (32.0-36.0); MEAN PLATELET VOLUME 8.4 fL (7.4-11.4); MONOCYTES # (AUTO) 0.9 10^3/uL (0.0-1.0); MONOCYTES % (AUTO) 8.8 %; NEUTROPHILS # (AUTO) 7.2 10^3/uL (1.5-6.6); NEUTROPHILS % (AUTO) 70.3 %; RED BLOOD COUNT 3.16 10^6/uL (4.70-6.10); RED CELL DISTRIBUTION WIDTH 13.1 % (12.0-15.0); UNCORRECTED WHITE BLOOD COUNT 10.3 x10^3/uL; WHITE BLOOD COUNT 10.3 x10^3/uL (4.8-10.8)
[2016-11-20] MEDS: SODIUM CHLORIDE FLUSH 0.9% 10 ML SYRINGE IVP SCH ×3 (06:26→21:38)
[2016-11-20] MEDS: HYDROcod/ACETAM 5/325 MG TABLET PO PRN ×2 (06:27→21:47)
[2016-11-20 06:32] LABS: CALCIUM 7.7 mg/dL (8.5-10.3); CREATININE 1.7 mg/dL (0.6-1.2); MAGNESIUM 1.9 mg/dL (1.7-2.8); PHOSPHORUS 3.8 mg/dL (2.5-4.6)
[2016-11-20] MEDS: ALBUTEROL NEB 2.5 MG/3 ML INH PRN ×3 (07:17→19:35)
[2016-11-20] MEDS: INSULIN ASPART 300 UNIT/3 ML PEN SUBQ SCH ×7 (08:36→21:36)
[2016-11-20] MEDS ORDERED: ENOXAPARIN 40 MG/0.4 ML SYRINGE SUBQ SCH (09:00)
[2016-11-20] MEDS: ASPIRIN 325 MG TABLET PO SCH (09:01)
[2016-11-20] MEDS: ATORVASTATIN 40 MG TABLET PO SCH (09:02)
[2016-11-20] MEDS: amLODIPine 5 MG TABLET PO SCH (09:03)
[2016-11-20] MEDS: LOSARTAN 50 MG TABLET PO SCH (09:03)
[2016-11-20] MEDS: SPIRONOLACTONE 25 MG TABLET PO SCH (09:03)
[2016-11-20] MEDS: INSULIN GLARGINE 300 UNIT/3 ML PEN SUBQ SCH ×2 (10:21→21:35)
[2016-11-20] MEDS: levoFLOXacin 250 MG TABLET PO SCH (12:14)
[2016-11-20 12:38] LABS: HEMOGLOBIN A1C 0.91 g/dL
--- NOTE | 2016-11-20 15:08 | PROVIDER PROGRESS NOTE ---
Subjective - Prog Note Date Prog Note Date: 11/20/16 Prog Note Time: 15:04 - Subjective Subjective: On the one hand he improved from his diabetic perspective. His glucose came down to less than 200 and close to 100 with the insulin drip. He's been off the drip since this morning and transitioned to Lantus and his NovoLog before meals and at bedtime. He takes huge amounts. Sugars are starting to come back up with us. His continued in IV fluids. He has been observation status, and I was thinking of sending him home. However he continues to be short of breath which was his initial chief complaint when he came here. He has obstructive sleep apnea, coronary artery disease, asthma, and he started getting coughing and shortness of breath in the last few days. He got so short of breath with minimal activity he came to the emergency room. Even with treatment of his sugars, he continues to be short of breath was just trying to sit up in bed. While he acknowledges dyspnea on exertion more than 50 feet, this is a bit much at 2 or 3 feet. His chest feels tight, trying to bring up phlegm. Denies fever, chills. He has chronic leg edema and that's been worse in the last week. Denies chest pain or angina. Current Medications - Current Medications Current Medications: Active Medications Acetaminophen (Tylenol) 650 mg PO Q4HR PRN PRN Reason: Pain 1 to 4 Acetaminophen/Hydrocodone Bitart (Stewart 5/325) 1 tab PO Q4HR PRN PRN Reason: Pain 5 to 7 Last Admin: 11/20/16 06:27 Dose: 1 tab Albuterol () 2.5 mg INH Q4HR PRN PRN Reason: Wheezing Last Admin: 11/20/16 13:09 Dose: 2.5 mg Amitriptyline HCl (Elavil) 50 mg PO QPM [facility] Amlodipine Besylate (Norvasc) 5 mg PO DAILY [facility] Last Admin: 11/20/16 09:03 Dose: 5 mg Aspirin (Zoie) 325 mg PO DAILY [facility] Last Admin: 11/20/16 09:01 Dose: 325 mg Atorvastatin Calcium (Lipitor) 80 mg PO DAILY [facility] Last Admin: 11/20/16 09:02 Dose: 80 mg Enoxaparin Sodium (Lovenox) 40 mg SUBQ DAILY [facility] Last Admin: 11/20/16 09:04 Dose: 40 mg Sodium Chloride (Normal Saline 0.9%) 1,000 mls @ 100 mls/hr IV .Q10H [facility] Last Admin: 11/20/16 04:24 Dose: 100 mls/hr Insulin Aspart (Novolog) 30 unit SUBQ TIDWM ELLIOT PRN Reason: Protocol Last Admin: 11/20/16 11:48 Dose: 30 unit Insulin Aspart (Novolog) 3 - 11 unit SUBQ 0800,1200,1700,2100 [facility] PRN Reason: Protocol Insulin Glargine (Lantus Solostar) 80 unit SUBQ BID [facility] Last Admin: 11/20/16 10:21 Dose: 80 unit Levofloxacin (Levaquin) 750 mg PO DAILY [facility] Last Admin: 11/20/16 12:14 Dose: 750 mg Losartan Potassium (Cozaar) 100 mg PO DAILY [facility] Last Admin: 11/20/16 09:03 Dose: 100 mg Ondansetron HCl (Zofran Odt) 4 mg TL Q6HR PRN PRN Reason: Nausea / Vomiting Ondansetron HCl (Zofran Inj) 4 mg IVP Q6HR PRN PRN Reason: Nausea / Vomiting Sodium Chloride (Normal Saline Flush 0.9%) 10 ml IVP PRN PRN PRN Reason: NEEDED PER PROVIDER ORDERS Sodium Chloride (Normal Saline Flush 0.9%) 10 ml IVP Q8HR [facility] Last Admin: 11/20/16 14:24 Dose: Not Given Spironolactone (Aldactone) 25 mg PO DAILY [facility] Last Admin: 11/20/16 09:03 Dose: 25 mg Trazodone HCl (Desyrel) 50 mg PO QPM [facility] Last Admin: 11/19/16 23:36 Dose: 50 mg Losartan [Cozaar] 100 mg PO DAILY 02/04/13 Spironolactone [Aldactone] 25 mg PO DAILY 02/04/13 Trazodone HCl 75 mg PO HS 02/04/13 Amitriptyline HCl 50 mg PO QPM 11/21/15 Amlodipine Besylate 5 mg PO DAILY 11/21/15 Aspirin [Zoie] 325 mg PO DAILY 11/21/15 Atorvastatin Calcium 80 mg PO DAILY 11/21/15 Esomeprazole Magnesium 40 mg PO DAILY 11/21/15 Metoprolol Succinate 100 mg PO DAILY 11/21/15 Insulin Regular, Human [Humulin R] 125 unit SQ 0900,1300,1700,2300 11/20/16 Objective - Vital Signs/Intake & Output Reviewed Vital Signs: Yes Vital Signs: Vital Signs x48h Pulse Resp 11/20/16 13:09 78 22 Intake & Output: Intake & Output 11/17/16 11/18/16 11/19/16 11/20/16 23:59 23:59 23:59 23:59 Intake Total 300 Output Total 650 Balance -350 - Objective General Appearance: positive: Alert, Mild distress (from sob even at rest. nasal voice. short, superobese white male) Eyes Bilateral: positive: PERRL, EOMI ENT: positive: Other (poor poor dentition) Neck: positive: Lymphadenopathy (R) (shotty), Lymphadenopathy (L) (shotty), Other (can't assess for JVD since neck is too thick). negative: Stiff neck, Carotid bruit Respiratory: positive: Chest non-tender, Wheezes, Rhonchi Cardiovascular: positive: Regular rate & rhythm. negative: Gallop/S4, Friction rub Abdomen: positive: Nml bowel sounds, Other (huge panus). negative: Guarding, Rebound Skin: positive: Color nml, No rash, Warm, Dry Extremities: positive: Pedal edema (only 1+ on left ankle and foot, the right is without). negative: French's sign/cords Neurologic/Psychiatric: positive: Oriented x3, CN's nml (2-12), Motor nml - Lab Results Fish Bones: 11/20/16 04:44 11/20/16 04:44 Other Labs: Lab Results x24hrs 11/20/16 11/20/16 Range/Units 12:13 11:34 POC Whole Bld Glucose 324 H (70 - 100) mg/dL Glycated Hemoglobin 9.1 H (4.6-6.2) % Estim Average Glucose 214 H (70-100) Assessment/Plan - Problem List (1) Dehydration Impression: On presentation to the emergency department the patient appeared very dry. Is is likely secondary to persistent hyper glycemia as the patient's glucose was in the 500s. Also the patient admitted to decreased appetite and decreased oral intake over the last day. Patient denied any diarrhea nausea or vomiting. Patient's lab work was consistent with marked dehydration as his sodium was 131 , potassium was elevated to 6.5 his chloride was low down to 100 and he appear to have acute kidney injury with a creatinine of 2.3 from a baseline of 1.3. The patient also appeared very dry on examination. After 1 day in ICU with agressive IVF and insulin drip, he is improving. Not resolved yet and not at baseline but improving. Plan: IV fluids continue Encourage oral fluids Placed on insulin drip to correct hyperglycemia and now stopped Monitor electrolytes (2) MICHAELLE (acute kidney injury) Conclusion/Plan: Patient's baseline creatinine is 1.3 from 1 year ago Patient has poorly controlled diabetes and has chronic kidney disease on presentation his creatinine is 2.3 this could be progression of his CKD however it appears more likely to be acute kidney injury. The patient appears to have prerenal azotemia as he does have an elevated BUN low sodium elevated glucose and appears very dry on examination. Today mouth is less dry, lips are less dry. Creat is now 1.7 this morning. Plan: Contnue IV fluids aggressively and hope that his creat will return to baseline. Hold any nephrotoxic agents Monitoring creatinine closely and is improving with IV fluid so not getting renal ultrasound to rule out obstruction at this time Monitor potassium if not improving this is an indication for dialysis although patient is making good urine and potassium will likely improve. (3) Hyperkalemia Conclusion/Plan: Patient presented with hyperkalemia initial potassium was 6.5. Patient was given IV fluids and place on insulin drip and repeat potassium was still 7.2. Hyperkalemia is likely multifactorial secondary to acute kidney injury, severe hyperglycemia, use of potassium sparing diuretics and use of angiotensin receptor samantha at home for hypertension. EKG shows peaked T waves in the anterior leads After treatment, K is 4.0 this morning. Plan: Continue to hold off on resuming spironolactone and Cozaar Insulin drip stopped. Given calcium gluconate to stabilize myocardium yesterday Considered Kayexalate if potassium not improving but not needed for now Monitor potassium closely (4) Hyperglycemia due to type 2 diabetes mellitus Conclusion/Plan: The patient presents with dehydration and severely elevated glucose up to 542 on presentation. Long history of noncompliance per he and his . A1c is >9% today and he tells me it's usually above 10%. Patient has acute kidney injury with hyperkalemia and hyponatremia that is slowly improving with treatment. The patient does not have polyuria or polydipsia there is positive serum ketones but pH is normal and there is no anion gap. Patient is mentating normally his does not appear to be hyper osmolar nonketotic hyperglycemia or DKA Hyperglycemia is likely secondary to noncompliance with insulin and diet. Plan: Given patient's severe hyperkalemia and acute kidney injury we placed the patient on an insulin drip and observed in the ICU Once hyperkalemia improved and blood sugars dropped to less than 300 we stopped insulin drip and started on subcutaneous insulin. Patient on Humalog U 500 4 times a day at home but noncompliant Once blood sugars improve we will place patient on Lantus 80 units twice a day and moderate to high dose sliding scale insulin Diabetic diet Nutrition consult Counseling on need for medication compliance. Transfer to [facility] Surg Status. 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 Patient will be continued on home dose of amlodipine however we'll be holding patient's Aldactone and Cozaar until hyperkalemia has resolved. Monitor blood pressure closely Patient counseled on need for medication compliance Qualifiers: Hypertension type: essential hypertension Qualified Code(s): I10 - Essential (primary) hypertension (6) Hyponatremia Conclusion/Plan: Patient appears to have hypovolemic hyponatremia as he is dehydrated on examination and on lab work. Also there is some pseudohyponatremia secondary to severe hyperglycemia Patient has been given IV fluids and sodium on recheck is now normal. (7) URI (upper respiratory infection) Conclusion/Plan: The patient initially presented for difficulty breathing cough and shortness of air. This was HIS complaint and we found everything else. Patient was mildly hypoxic on presentation, tachypnea and had some wheezing on examination Chest x-ray negative for acute infiltrate likely viral Patient had improvement with nebulizer treatment but he is still more sob and has more wheezing than his baseline. SOB at rest. As such change to inpatient status and keep until he feels that he can sit to transfer, and stand and walk without severe increased effort. Patient will continue to be given supportive care with nebs and supplemental oxygen while hospitalized. Add Levaquin. Qualifiers: URI type: unspecified URI Qualified Code(s): J06.9 - Acute upper respiratory infection, unspecified (8) Asthma Conclusion/Plan: The patient had mild wheezing on presentation with some mild shortness of breath and mild hypoxia Patient likely has a mild asthma exacerbation secondary to a URI but will add levaquin. Since the sob has not improved in the last day, will also order ECHO to assess LVEF. Plan: Albuterol when necessary Supplemental oxygen Will hold off on steroids unless patient decompensates. I also want to avoid raising his glucose again. See if levaquin helps. Do inhaled steroids. Qualifiers: Asthma severity: mild intermittent Asthma complication type: uncomplicated Qualified Code(s): J45.20 - Mild intermittent asthma, uncomplicated (9) CONNIE on CPAP Conclusion/Plan: continue home CPAP
[2016-11-20] MEDS ORDERED: ENOXAPARIN 150 MG/ML SYRINGE SUBQ SCH (17:00)
--- NOTE | 2016-11-20 18:28 | Ultrasound Preliminary Report ---
Exam: US Duplex Ext Veins Left IMPRESSION: No evidence for deep venous thrombosis. [facility] SITE ID: [id number]
--- NOTE | 2016-11-20 18:31 | Ultrasound Report ---
EXAM: LEFT LOWER EXTREMITY VENOUS ULTRASOUND EXAM DATE: 11/20/2016 06:05 PM. CLINICAL HISTORY: Shortness of breath. Left leg edema. COMPARISON: None. TECHNIQUE: Real-time sonographic vascular imaging was performed by the special trackwork blacksmith through the lower extremity utilizing both color-flow and Doppler spectral analysis. Multiple event sales representative static melida ges were saved for review. FINDINGS: Common Femoral Vein (CFV): Normal. CFV-GSV Junction: Normal. Profunda Femoral Vein (PFV): Normal. Femoral Vein (FV) Prox: Normal. Femoral Vein (FV) Mid: Normal. Femoral Vein (FV) Dist: Normal. Popliteal Vein: Normal. Posterior Tibial Veins: Normal. Peroneal Veins: Normal. Other: None. IMPRESSION: No evidence for deep venous thrombosis. [facility] Referring Provider Line: [phone] SITE ID: [id number]
--- NOTE | 2016-11-20 18:43 | XRAY Preliminary Report ---
Exam: XR Chest 2 View PA/LAT IMPRESSION: Increasing right mid and lower lung haziness concerning for right lower lobe pneumonia. [facility] SITE ID: [id number]
--- NOTE | 2016-11-20 18:46 | XRAY Report ---
EXAM: CHEST RADIOGRAPHY EXAM DATE: 11/20/2016 06:23 PM. CLINICAL HISTORY: Worsening shortness of breath. COMPARISON: 11/19/2016. TECHNIQUE: 2 views. FINDINGS: Lungs/Pleura: Increasing haziness in the right mid and lower lung, otherwise no focal opacities evide nt. No pleural effusion. No pneumothorax. Hypoinflated lungs. Mediastinum: Borderline heart size. Other: No bony abnormalities noted. IMPRESSION: Increasing right mid and lower lung haziness concerning for right lower lobe pneumonia. [facility] Referring Provider Line: [phone] SITE ID: [id number]
[2016-11-20] MEDS ORDERED: hydrALAZINE INJ 20 MG/ML VIAL IVP SCH (19:22)
[2016-11-20] MEDS: BUDESONIDE 0.5 MG/2 ML NEB INH SCH (19:35)
[2016-11-20] MEDS: DOCUSATE SODIUM 250 MG CAPSULE PO SCH (19:40)
[2016-11-20] MEDS: SENNA 8.6 MG TABLET PO SCH (19:41)
[2016-11-20] MEDS: hydrALAZINE INJ 20 MG/ML VIAL IVP PRN (19:41)
[2016-11-20] MEDS: POLYETHYLENE GLYCOL 3350 17 GM PACKET PO SCH (19:46)
[2016-11-20] MEDS ORDERED: traZODone 50 MG TABLET PO SCH (21:00)
[2016-11-20] MEDS: AMITRIPTYLINE 25 MG TABLET PO SCH (21:35)
[2016-11-20] MEDS: traZODone 50 MG TABLET PO SCH (21:42)
[2016-11-21] MEDS: SODIUM CHLORIDE 0.9% 1,000 ML IV SCH ×3 (00:43→12:05)
[2016-11-21 06:23] LABS: VBG PH 7.364 (7.31-7.41)
[2016-11-21 06:24] LABS: VBG BASE EXCESS -4.7 mmol/L (-2 - +2); VBG OXYGEN SATURATION 94.9 % (60-80); VBG TOTAL CO2 21.2 mmol/L (24-29)
[2016-11-21 06:28] LABS: CALCIUM 8.1 mg/dL (8.5-10.3); CREATININE 1.9 mg/dL (0.6-1.2); POTASSIUM 4.1 mmol/L (3.5-5.0)
[2016-11-21] MEDS: SODIUM CHLORIDE FLUSH 0.9% 10 ML SYRINGE IVP SCH ×3 (07:41→21:05)
[2016-11-21] MEDS: BUDESONIDE 0.5 MG/2 ML NEB INH SCH ×2 (07:59→19:12)
[2016-11-21] MEDS: ALBUTEROL NEB 2.5 MG/3 ML INH PRN ×2 (07:59→19:12)
[2016-11-21] MEDS ORDERED: SODIUM CHLORIDE 0.9% 500 ML IV ONE (08:17)
[2016-11-21] MEDS: LOSARTAN 50 MG TABLET PO SCH (08:41)
[2016-11-21] MEDS: amLODIPine 5 MG TABLET PO SCH (08:41)
[2016-11-21] MEDS: POLYETHYLENE GLYCOL 3350 17 GM PACKET PO SCH (08:41)
[2016-11-21] MEDS: levoFLOXacin 250 MG TABLET PO SCH (08:41)
[2016-11-21] MEDS: ATORVASTATIN 40 MG TABLET PO SCH (08:41)
[2016-11-21] MEDS: SENNA 8.6 MG TABLET PO SCH (08:41)
[2016-11-21] MEDS: SPIRONOLACTONE 25 MG TABLET PO SCH (08:42)
[2016-11-21] MEDS: ASPIRIN 325 MG TABLET PO SCH (08:42)
[2016-11-21] MEDS: DOCUSATE SODIUM 250 MG CAPSULE PO SCH (08:42)
[2016-11-21] MEDS: INSULIN ASPART 300 UNIT/3 ML PEN SUBQ SCH ×7 (08:59→20:57)
[2016-11-21] MEDS: INSULIN GLARGINE 300 UNIT/3 ML PEN SUBQ SCH ×2 (08:59→20:56)
[2016-11-21] MEDS ORDERED: PIPERACILLIN/TAZOBACTAM 3.375 GM in SODIUM CHLORIDE 0.9% MINIBAG 100 ML IV SCH (09:00)
[2016-11-21] MEDS: hydrALAZINE INJ 20 MG/ML VIAL IVP PRN (12:05)
--- NOTE | 2016-11-21 12:25 | PROVIDER PROGRESS NOTE ---
Subjective - Prog Note Date Prog Note Date: 11/21/16 Prog Note Time: 12:41 - Subjective Pt reports feeling: Improved Subjective: yesterday he was Short of breath trying to sit up in bed. I added Levaquin and inhaled steroid and he says is a little bit better. I also repeated his chest x- ray and chest x-ray shows a new right mid lobe and upper lobe haziness. He may be developing pneumonia after all.I have been worried about an undiagnosed pulmonary embolus but venous Dopplers of the negative. I am unable to do VQ scan since nuclear medicine is unavailable. And I cannot do CT pulmonary angiogram because of his creatinine. had started lovenox empirically. There is no change in sputum. No fever no chills. appetite is ok. no abd pain, no diarrhea. Current Medications - Current Medications Current Medications: Active Medications Acetaminophen (Tylenol) 650 mg PO Q4HR PRN PRN Reason: Pain 1 to 4 Last Admin: 11/21/16 12:30 Dose: 650 mg Acetaminophen/Hydrocodone Bitart (Stickney 5/325) 1 tab PO Q4HR PRN PRN Reason: Pain 5 to 7 Last Admin: 11/20/16 21:47 Dose: 1 tab Albuterol () 2.5 mg INH Q4HR PRN PRN Reason: Wheezing Last Admin: 11/21/16 07:59 Dose: 2.5 mg Amitriptyline HCl (Elavil) 50 mg PO QPM [facility] Last Admin: 11/20/16 21:35 Dose: 50 mg Amlodipine Besylate (Norvasc) 5 mg PO DAILY [facility] Last Admin: 11/21/16 08:41 Dose: 5 mg Aspirin (Zoie) 325 mg PO DAILY [facility] Last Admin: 11/21/16 08:42 Dose: 325 mg Atorvastatin Calcium (Lipitor) 80 mg PO DAILY [facility] Last Admin: 11/21/16 08:41 Dose: 80 mg Budesonide (Pulmicort) 0.5 mg INH RTBID [facility] Last Admin: 11/21/16 07:59 Dose: 0.5 mg Docusate Sodium (Colace 250mg Capsule) 250 - 500 mg PO DAILY [facility] Last Admin: 11/21/16 08:42 Dose: 250 mg Enoxaparin Sodium (Lovenox) 150 mg SUBQ Q24H [facility] Last Admin: 11/20/16 17:08 Dose: 150 mg Enoxaparin Sodium (Lovenox) 40 mg SUBQ Q24H [facility] Hydralazine HCl (Apresoline Inj) 10 mg IVP TID PRN PRN Reason: for BP >170 systolic or 90 marylou Last Admin: 11/21/16 12:05 Dose: 10 mg Sodium Chloride (Normal Saline 0.9%) 1,000 mls @ 100 mls/hr IV .Q10H [facility] Last Admin: 11/21/16 12:05 Dose: 100 mls/hr Piperacillin Sod/Tazobactam (Sod 3.375 gm/ Sodium Chloride) 100 mls @ 25 mls/ hr IV Q8H [facility] Last Admin: 11/21/16 12:30 Dose: 25 mls/hr Insulin Aspart (Novolog) 30 unit SUBQ TIDWM [facility] PRN Reason: Protocol Last Admin: 11/21/16 12:04 Dose: 30 unit Insulin Aspart (Novolog) 3 - 11 unit SUBQ 0800,1200,1700,2100 [facility] PRN Reason: Protocol Last Admin: 11/21/16 12:05 Dose: 3 unit Insulin Glargine (Lantus Solostar) 80 unit SUBQ BID [facility] Last Admin: 11/21/16 08:59 Dose: 80 unit Levofloxacin (Levaquin) 750 mg PO DAILY [facility] Last Admin: 11/21/16 08:41 Dose: 750 mg Losartan Potassium (Cozaar) 100 mg PO DAILY [facility] Last Admin: 11/21/16 08:41 Dose: 100 mg Ondansetron HCl (Zofran Odt) 4 mg TL Q6HR PRN PRN Reason: Nausea / Vomiting Ondansetron HCl (Zofran Inj) 4 mg IVP Q6HR PRN PRN Reason: Nausea / Vomiting Polyethylene Glycol (Miralax) 17 gm PO DAILY [facility] Last Admin: 11/21/16 08:41 Dose: 17 gm Senna (Senokot) 8.6 - 17.2 mg PO DAILY [facility] Last Admin: 11/21/16 08:41 Dose: 8.6 mg Sodium Chloride (Normal Saline Flush 0.9%) 10 ml IVP PRN PRN PRN Reason: NEEDED PER PROVIDER ORDERS Sodium Chloride (Normal Saline Flush 0.9%) 10 ml IVP Q8HR [facility] Last Admin: 11/21/16 07:41 Dose: Not Given Spironolactone (Aldactone) 25 mg PO DAILY [facility] Last Admin: 11/21/16 08:42 Dose: 25 mg Trazodone HCl (Desyrel) 50 mg PO QPM [facility] Last Admin: 11/20/16 21:42 Dose: 50 mg Losartan [Cozaar] 100 mg PO DAILY 02/04/13 Spironolactone [Aldactone] 25 mg PO DAILY 02/04/13 Trazodone HCl 75 mg PO HS 02/04/13 Amitriptyline HCl 50 mg PO QPM 11/21/15 Amlodipine Besylate 5 mg PO DAILY 11/21/15 Aspirin [Zoie] 325 mg PO DAILY 11/21/15 Atorvastatin Calcium 80 mg PO DAILY 11/21/15 Esomeprazole Magnesium 40 mg PO DAILY 11/21/15 Metoprolol Succinate 100 mg PO DAILY 11/21/15 Insulin Regular, Human [Humulin R] 125 unit SQ 0900,1300,1700,2300 11/20/16 Objective - Vital Signs/Intake & Output Reviewed Vital Signs: Yes Vital Signs: Vital Signs x48h Temp Pulse Pulse Resp BP Pulse Ox 11/21/16 12:23 94 186/76 H 11/21/16 12:17 96 186/77 H 11/21/16 12:10 92 190/82 H 11/21/16 11:47 36.7 C 89 24 204/79 H 96 11/21/16 07:59 78 22 11/21/16 07:51 36.9 C 91 24 196/87 H 96 11/21/16 05:00 36.7 C 82 20 152/50 H 93 Intake & Output: Intake & Output 11/18/16 11/19/16 11/20/16 11/21/16 23:59 23:59 23:59 23:59 Intake Total 420 560 Output Total 650 Balance -230 560 - Objective General Appearance: positive: No acute distress, Alert, Other (Short stature severely overweight middle-age white man with a BMI of 38.5 and a weight of 121.6 kg.) Eyes Bilateral: positive: PERRL, EOMI Neck: negative: Lymphadenopathy (R), Lymphadenopathy (L), Stiff neck, Carotid bruit Respiratory: positive: Chest non-tender, Wheezes, Other (barrel chest). negative: Rales, Rhonchi Cardiovascular: positive: Regular rate & rhythm. negative: Gallop/S4, Friction rub Abdomen: positive: Non-tender, Nml bowel sounds, Other (huge panus unable to assess for organomegaly). negative: Guarding, Rebound Skin: positive: Warm, Dry Extremities: positive: Pedal edema (more like anasarca. arms, hands, sacrum) Neurologic/Psychiatric: positive: Oriented x3, CN's nml (2-12), Motor nml, Weakness (and mcdaniels) - Lab Results Fish Bones: 11/20/16 04:44 11/21/16 04:59 Other Labs: Lab Results x24hrs 11/21/16 11/21/16 11/21/16 Range/Units 11:43 07:43 04:59 VBG pH (7.31-7.41) VBG pCO2 (41-51) mmHg VBG pO2 (25-47) mmHg VBG HCO3 (23-28) mmol/L VBG Total CO2 (24-29) mmol/L VBG O2 Saturation (60-80) % VBG Base Excess (-2 - +2) mmol/L Sodium 137 (135-145) mmol/L Potassium 4.1 (3.5-5.0) mmol/L Chloride 108 (101-111) mmol/L Carbon Dioxide 22 (21-32) mmol/L Anion Gap 7.0 (6-13) BUN 33 H (6-20) mg/dL Creatinine 1.9 H (0.6-1.2) mg/dL Estimated GFR (MDRD) 36 L (>89) Glucose 205 H (70-100) mg/dL POC Whole Bld Glucose 168 H 155 H (70 - 100) mg/dL Glycated Hemoglobin (4.6-6.2) % Estim Average Glucose (70-100) Calcium 8.1 L (8.5-10.3) mg/dL B-Natriuretic Peptide (5-100) pg/mL 11/21/16 11/20/16 11/20/16 Range/Units 04:59 20:41 16:53 VBG pH 7.364 (7.31-7.41) VBG pCO2 36.0 L (41-51) mmHg VBG pO2 77.1 H (25-47) mmHg VBG HCO3 20.1 L (23-28) mmol/L VBG Total CO2 21.2 L (24-29) mmol/L VBG O2 Saturation 94.9 H (60-80) % VBG Base Excess -4.7 L (-2 - +2) mmol/L Sodium (135-145) mmol/L Potassium (3.5-5.0) mmol/L Chloride (101-111) mmol/L Carbon Dioxide (21-32) mmol/L Anion Gap (6-13) BUN (6-20) mg/dL Creatinine (0.6-1.2) mg/dL Estimated GFR (MDRD) (>89) Glucose (70-100) mg/dL POC Whole Bld Glucose 209 H (70 - 100) mg/dL Glycated Hemoglobin (4.6-6.2) % Estim Average Glucose (70-100) Calcium (8.5-10.3) mg/dL B-Natriuretic Peptide 639 H (5-100) pg/mL 11/20/16 11/20/16 Range/Units 16:40 12:13 VBG pH (7.31-7.41) VBG pCO2 (41-51) mmHg VBG pO2 (25-47) mmHg VBG HCO3 (23-28) mmol/L VBG Total CO2 (24-29) mmol/L VBG O2 Saturation (60-80) % VBG Base Excess (-2 - +2) mmol/L Sodium (135-145) mmol/L Potassium (3.5-5.0) mmol/L Chloride (101-111) mmol/L Carbon Dioxide (21-32) mmol/L Anion Gap (6-13) BUN (6-20) mg/dL Creatinine (0.6-1.2) mg/dL Estimated GFR (MDRD) (>89) Glucose (70-100) mg/dL POC Whole Bld Glucose 312 H (70 - 100) mg/dL Glycated Hemoglobin 9.1 H (4.6-6.2) % Estim Average Glucose 214 H (70-100) Calcium (8.5-10.3) mg/dL B-Natriuretic Peptide (5-100) pg/mL Assessment/Plan - Problem List (1) Pneumonia Impression: Shortness of breath has been his main complaint since admission with a cough. From a medical perspective we became sidetracked with his severely elevated glucose, acute kidney injury with dehydration, and iatrogenic bradycardia. We have held his metoprolol. Treated the glucose. shortness of breath continued. I worried about congestive heart failure but echo is with diastolic failure not systolic failure and mild pulmonary hypertension. I worried about PE and started on Lovenox. Chest x-ray now tells me that he has pneumonia. Plan: Will add Zosyn and continue Levaquin for healthcare associated risk. stop lovenox Qualifiers: Pneumonia type: due to unspecified organism Laterality: right Lung location: middle lobe of lung Qualified Code(s): J18.1 - Lobar pneumonia, unspecified organism (2) Dehydration Impression: On presentation to the emergency department the patient appeared very dry. Is is likely secondary to persistent hyperglycemia as the patient's glucose was in the 500s. 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 Patient denied any diarrhea nausea or vomiting. Patient's lab work was consistent with marked dehydration as his sodium was 131 , potassium was elevated to 6.5 his chloride was low down to 100 and he appear to have acute kidney injury with a creatinine of 2.3 from a baseline of 1.3. The patient also appeared very dry on examination. After 1 day in ICU with agressive IVF and insulin drip and now on Med Surg, he is improving. Not resolved yet and not at baseline but improving. Plan: IV fluids continued Encourage oral fluids Monitor electrolytes (3) MICHAELLE (acute kidney injury) Conclusion/Plan: Patient's baseline creatinine is 1.3 from 1 year ago Patient has poorly controlled diabetes and has chronic kidney disease on presentation his creatinine is 2.3 this could be progression of his CKD however it appears more likely to be acute kidney injury. The patient appears to have prerenal azotemia as he does have an elevated BUN low sodium elevated glucose and appears very dry on examination. Today creat bumped up to 1.9 from yesterdays 1.7 Plan: I had stopped IVF last night so will give 2 liters 0.9 NS and hope that his creat will return to baseline. Recheck BMP this afternoon Hold any nephrotoxic agents, will dc spironolactone for now Go ahead and check renal US Monitor potassium if not improving this is an indication for dialysis although patient is making good urine and potassium will likely improve. (4) Hyperkalemia Conclusion/Plan: Patient presented with hyperkalemia initial potassium was 6.5. Patient was given IV fluids and place on insulin drip and repeat potassium was still 7.2. Hyperkalemia is likely multifactorial secondary to acute kidney injury, severe hyperglycemia, use of potassium sparing diuretics and use of angiotensin receptor samantha at home for hypertension. EKG shows peaked T waves in the anterior leads. Treatment was calcium gluconate , IV insulin After treatment, K is returned to normal on 11/20 Resumed Cozar and spironolactone yesterday Plan: Discontinue spironolactone Monitor potassium closely (5) Hyperglycemia due to type 2 diabetes mellitus Conclusion/Plan: The patient presents with dehydration and severely elevated glucose up to 542 on presentation. Long history of noncompliance per he and his . A1c is >9% today and he tells me it's usually above 10%. Patient has acute kidney injury with hyperkalemia and hyponatremia that is slowly improving with treatment. The patient does not have polyuria or polydipsia there is positive serum ketones but pH is normal and there is no anion gap. Patient is mentating normally his does not appear to be hyper osmolar nonketotic hyperglycemia or DKA Hyperglycemia is likely secondary to noncompliance with insulin and diet. Plan: Given patient's severe hyperkalemia and acute kidney injury we placed the patient on an insulin drip and observed in the ICU Once hyperkalemia improved and blood sugars dropped to less than 300 we stopped insulin drip and started on subcutaneous insulin. Patient on Humalog U 500 4 times a day at home but noncompliant Once blood sugars improved, we transferred to [facility] and placed patient on Lantus 80 units twice a day and 30 units of fixed dose short acting with meals. He was still in 300's so added moderate sliding scale on top of that and he is 160's today. Diabetic diet Nutrition consult Counseling on need for medication compliance. Qualifiers: Diabetes mellitus terminal supervisor insulin use: with terminal supervisor use Qualified Code( s): E11.65 - Type 2 diabetes mellitus with hyperglycemia; Z79.4 - longterm ( current) use of insulin (6) Hypertension Conclusion/Plan: Blood pressure very poorly controlled on presentation Is is likely secondary to noncompliance with medications. Amlodipine, cozaar, spironolactone resumed and hydralazine added yesterday, but now creat has bumped so will stop spironolactone, hydrate with 2 liters and repeat the creat. Monitor blood pressure closely Patient counseled on need for medication compliance Qualifiers: Hypertension type: essential hypertension Qualified Code(s): I10 - Essential (primary) hypertension (7) Hyponatremia Conclusion/Plan: Patient appears to have hypovolemic hyponatremia as he is dehydrated on examination and on lab work. Also there is some pseudohyponatremia secondary to severe hyperglycemia Patient has been given IV fluids and sodium on recheck is now normal. (8) Asthma Conclusion/Plan: The patient had mild wheezing on presentation with some mild shortness of breath and mild hypoxia Patient likely has a mild asthma exacerbation secondary to a URI that is now a pneumonia. Since the sob has not improved in the last 2 days, ECHO ordered to assess LVEF. He has an LVEF of 65-70% with Grade II diastolic dysfunction. Pulmonary pressures are coming up at 47 mmHg. No sig valvular heart disease. Mild LAE. Plan: Albuterol when necessary Supplemental oxygen Am holding off on steroids unless patient decompensates. I want to avoid raising his glucose again. On inhaled steroids. On abx. Qualifiers: Asthma severity: mild intermittent Asthma complication type: uncomplicated Qualified Code(s): J45.20 - Mild intermittent asthma, uncomplicated (9) CONNIE on CPAP Conclusion/Plan: continue home CPAP
[2016-11-21] MEDS: ACETAMINOPHEN 325 MG TABLET PO PRN (12:30)
[2016-11-21] MEDS: PIPERACILLIN/TAZOBACTAM 3.375 GM in SODIUM CHLORIDE 0.9% MINIBAG 100 ML IV SCH ×2 (12:30→20:59)
[2016-11-21 16:30] LABS: CALCIUM 8.2 mg/dL (8.5-10.3); CREATININE 1.8 mg/dL (0.6-1.2); POTASSIUM 4.1 mmol/L (3.5-5.0)
[2016-11-21] MEDS ORDERED: ENOXAPARIN 40 MG/0.4 ML SYRINGE SUBQ SCH (17:00)
[2016-11-21] MEDS: AMITRIPTYLINE 25 MG TABLET PO SCH (20:57)
[2016-11-21] MEDS: traZODone 50 MG TABLET PO SCH (20:58)
[2016-11-21] MEDS ORDERED: BISACODYL 10 MG SUPP PR SCH (22:03)
--- NOTE | 2016-11-21 23:46 | Ultrasound Preliminary Report ---
Exam: US Retroperitoneal IMPRESSION: 1. Normal renal ultrasound. 2. Large postvoid residual, with irregular bladder wall. [facility] SITE ID: [id number]
--- NOTE | 2016-11-21 23:49 | Ultrasound Report ---
EXAM: RENAL ULTRASOUND EXAM DATE: 11/21/2016 10:31 PM. CLINICAL HISTORY: Acute kidney failure. COMPARISON: None. TECHNIQUE: Real-time scanning was performed with static images obtained. FINDINGS: Right Kidney: 11.6 x 6.1 x 6.5 cm. Normal echotexture with no stones, contour-deforming masses, or h ydronephrosis. Left Kidney: 11.9 x 6.3 x 7.1 cm. Normal echotexture with no stones, contour-deforming masses, or hy dronephrosis. Bladder: Bilateral jets seen. The prevoid bladder volume was 490 cc. The postvoid bladder volume was 303 cc. Irregular bladder wall noted. IMPRESSION: 1. Normal renal ultrasound. 2. Large postvoid residual, with irregular bladder wall. [facility] Referring Provider Line: [phone] SITE ID: [id number]
[2016-11-22] MEDS: ACETAMINOPHEN 325 MG TABLET PO PRN ×2 (00:29→23:09)
[2016-11-22] MEDS: PIPERACILLIN/TAZOBACTAM 3.375 GM in SODIUM CHLORIDE 0.9% MINIBAG 100 ML IV SCH ×3 (04:44→21:13)
[2016-11-22] MEDS: SODIUM CHLORIDE FLUSH 0.9% 10 ML SYRINGE IVP SCH ×3 (05:38→23:36)
[2016-11-22 05:52] LABS: VBG BASE EXCESS -1.7 mmol/L (-2 - +2); VBG OXYGEN SATURATION 84.7 % (60-80); VBG PH 7.419 (7.31-7.41); VBG TOTAL CO2 23.5 mmol/L (24-29)
[2016-11-22] MEDS: hydrALAZINE INJ 20 MG/ML VIAL IVP PRN ×2 (06:45→23:00)
[2016-11-22] MEDS: BUDESONIDE 0.5 MG/2 ML NEB INH SCH ×2 (08:45→19:45)
[2016-11-22] MEDS: ALBUTEROL NEB 2.5 MG/3 ML INH PRN ×2 (08:45→19:45)
[2016-11-22 09:01] LABS: CALCIUM 8.2 mg/dL (8.5-10.3); CREATININE 1.9 mg/dL (0.6-1.2); POTASSIUM 4.5 mmol/L (3.5-5.0)
[2016-11-22] MEDS: POLYETHYLENE GLYCOL 3350 17 GM PACKET PO SCH (09:25)
[2016-11-22] MEDS: amLODIPine 5 MG TABLET PO SCH (09:26)
[2016-11-22] MEDS: ATORVASTATIN 40 MG TABLET PO SCH (09:26)
[2016-11-22] MEDS: SENNA 8.6 MG TABLET PO SCH (09:26)
[2016-11-22] MEDS: ASPIRIN 325 MG TABLET PO SCH (09:26)
[2016-11-22] MEDS: LOSARTAN 50 MG TABLET PO SCH (09:26)
[2016-11-22] MEDS: levoFLOXacin 250 MG TABLET PO SCH (09:26)
[2016-11-22] MEDS: DOCUSATE SODIUM 250 MG CAPSULE PO SCH (09:26)
[2016-11-22] MEDS: INSULIN ASPART 300 UNIT/3 ML PEN SUBQ SCH ×7 (09:27→21:14)
[2016-11-22] MEDS: INSULIN GLARGINE 300 UNIT/3 ML PEN SUBQ SCH ×2 (09:28→21:15)
[2016-11-22] MEDS: SODIUM CHLORIDE 0.9% 1,000 ML IV SCH ×2 (10:31→11:35)
--- NOTE | 2016-11-22 17:46 | PROVIDER PROGRESS NOTE ---
Subjective - Prog Note Date Prog Note Date: 11/22/16 Prog Note Time: 17:44 - Subjective Pt reports feeling: No change Subjective: sleepy but denies cp, has sob that just doesn't improve Current Medications - Current Medications Current Medications: Active Medications Acetaminophen (Tylenol) 650 mg PO Q4HR PRN PRN Reason: Pain 1 to 4 Last Admin: 11/22/16 00:29 Dose: 650 mg Acetaminophen/Hydrocodone Bitart ([place] 5/325) 1 tab PO Q4HR PRN PRN Reason: Pain 5 to 7 Last Admin: 11/20/16 21:47 Dose: 1 tab Albuterol () 2.5 mg INH Q4HR PRN PRN Reason: Wheezing Last Admin: 11/22/16 08:45 Dose: 2.5 mg Amitriptyline HCl (Elavil) 50 mg PO QPM [facility] Last Admin: 11/21/16 20:57 Dose: 50 mg Amlodipine Besylate (Norvasc) 5 mg PO DAILY [facility] Last Admin: 11/22/16 09:26 Dose: 5 mg Aspirin (Zoie) 325 mg PO DAILY [facility] Last Admin: 11/22/16 09:26 Dose: 325 mg Atorvastatin Calcium (Lipitor) 80 mg PO DAILY [facility] Last Admin: 11/22/16 09:26 Dose: 80 mg Budesonide (Pulmicort) 0.5 mg INH RTBID [facility] Last Admin: 11/22/16 08:45 Dose: 0.5 mg Docusate Sodium (Colace 250mg Capsule) 250 - 500 mg PO DAILY [facility] Last Admin: 11/22/16 09:26 Dose: 250 mg Hydralazine HCl (Apresoline Inj) 10 mg IVP TID PRN PRN Reason: for BP >170 systolic or 90 marylou Last Admin: 11/22/16 06:45 Dose: 10 mg Sodium Chloride (Normal Saline 0.9%) 1,000 mls @ 100 mls/hr IV .Q10H [facility] Last Admin: 11/22/16 11:35 Dose: 100 mls/hr Piperacillin Sod/Tazobactam (Sod 3.375 gm/ Sodium Chloride) 100 mls @ 25 mls/ hr IV Q8H [facility] Last Admin: 11/22/16 11:35 Dose: 25 mls/hr Insulin Aspart (Novolog) 30 unit SUBQ TIDWM [facility] PRN Reason: Protocol Last Admin: 11/22/16 17:06 Dose: 30 unit Insulin Aspart (Novolog) 3 - 11 unit SUBQ 0800,1200,1700,2100 [facility] PRN Reason: Protocol Last Admin: 11/22/16 17:07 Dose: Not Given Insulin Glargine (Lantus Solostar) 80 unit SUBQ BID [facility] Last Admin: 11/22/16 09:28 Dose: 80 unit Levofloxacin (Levaquin) 750 mg PO DAILY [facility] Last Admin: 11/22/16 09:26 Dose: 750 mg Losartan Potassium (Cozaar) 100 mg PO DAILY [facility] Last Admin: 11/22/16 09:26 Dose: 100 mg Ondansetron HCl (Zofran Odt) 4 mg TL Q6HR PRN PRN Reason: Nausea / Vomiting Ondansetron HCl (Zofran Inj) 4 mg IVP Q6HR PRN PRN Reason: Nausea / Vomiting Polyethylene Glycol (Miralax) 17 gm PO DAILY [facility] Last Admin: 11/22/16 09:25 Dose: 17 gm Senna (Senokot) 8.6 - 17.2 mg PO DAILY [facility] Last Admin: 11/22/16 09:26 Dose: 8.6 mg Sodium Chloride (Normal Saline Flush 0.9%) 10 ml IVP PRN PRN PRN Reason: NEEDED PER PROVIDER ORDERS Sodium Chloride (Normal Saline Flush 0.9%) 10 ml IVP Q8HR [facility] Last Admin: 11/22/16 12:56 Dose: Not Given Trazodone HCl (Desyrel) 50 mg PO QPM [facility] Last Admin: 11/21/16 20:58 Dose: 50 mg Losartan [Cozaar] 100 mg PO DAILY 02/04/13 Spironolactone [Aldactone] 25 mg PO DAILY 02/04/13 Trazodone HCl 75 mg PO HS 02/04/13 Amitriptyline HCl 50 mg PO QPM 11/21/15 Amlodipine Besylate 5 mg PO DAILY 11/21/15 Aspirin [Zoie] 325 mg PO DAILY 11/21/15 Atorvastatin Calcium 80 mg PO DAILY 11/21/15 Esomeprazole Magnesium 40 mg PO DAILY 11/21/15 Metoprolol Succinate 100 mg PO DAILY 11/21/15 Insulin Regular, Human [Humulin R] 125 unit SQ 0900,1300,1700,2300 11/20/16 Objective - Vital Signs/Intake & Output Vital Signs: Vital Signs x48h Temp Pulse Resp BP Pulse Ox 11/22/16 16:16 36.3 C L 94 18 175/72 H 98 11/22/16 12:57 36.8 C 104 H 18 158/64 H 95 Intake & Output: Intake & Output 11/19/16 11/20/16 11/21/16 11/22/16 23:59 23:59 23:59 23:59 Intake Total 420 2062 1884 Output Total 650 750 Balance -230 2062 1134 - Objective General Appearance: positive: Alert, Other (pleasant short obese white male, snoring this am.) Eyes Bilateral: positive: PERRL, EOMI Neck: negative: Lymphadenopathy (R), Lymphadenopathy (L), Stiff neck (but thick) , Carotid bruit Respiratory: positive: Chest non-tender, Wheezes, Rhonchi. negative: Rales Cardiovascular: positive: Regular rate & rhythm. negative: Gallop/S4, Friction rub Abdomen: positive: Non-tender, Nml bowel sounds. negative: Guarding, Rebound Skin: positive: No rash, Warm, Pallor Extremities: positive: Full ROM, Pedal edema Neurologic/Psychiatric: positive: Oriented x3, CN's nml (2-12), Motor nml - Lab Results Fish Bones: 11/20/16 04:44 11/22/16 05:35 Other Labs: Lab Results x24hrs 11/22/16 11/22/16 11/22/16 Range/Units 17:01 11:55 07:32 VBG pH (7.31-7.41) VBG pCO2 (41-51) mmHg VBG pO2 (25-47) mmHg VBG HCO3 (23-28) mmol/L VBG Total CO2 (24-29) mmol/L VBG O2 Saturation (60-80) % VBG Base Excess (-2 - +2) mmol/L Sodium (135-145) mmol/L Potassium (3.5-5.0) mmol/L Chloride (101-111) mmol/L Carbon Dioxide (21-32) mmol/L Anion Gap (6-13) BUN (6-20) mg/dL Creatinine (0.6-1.2) mg/dL Estimated GFR (MDRD) (>89) Glucose (70-100) mg/dL POC Whole Bld Glucose 137 H 153 H 119 H (70 - 100) mg/dL Calcium (8.5-10.3) mg/dL 11/22/16 11/22/16 11/21/16 Range/Units 05:35 05:35 20:53 VBG pH 7.419 H (7.31-7.41) VBG pCO2 35.4 L (41-51) mmHg VBG pO2 46.9 (25-47) mmHg VBG HCO3 22.4 L (23-28) mmol/L VBG Total CO2 23.5 L (24-29) mmol/L VBG O2 Saturation 84.7 H (60-80) % VBG Base Excess -1.7 (-2 - +2) mmol/L Sodium 137 (135-145) mmol/L Potassium 4.5 (3.5-5.0) mmol/L Chloride 108 (101-111) mmol/L Carbon Dioxide 21 (21-32) mmol/L Anion Gap 8.0 (6-13) BUN 27 H (6-20) mg/dL Creatinine 1.9 H (0.6-1.2) mg/dL Estimated GFR (MDRD) 36 L (>89) Glucose 129 H (70-100) mg/dL POC Whole Bld Glucose 105 H (70 - 100) mg/dL Calcium 8.2 L (8.5-10.3) mg/dL Assessment/Plan - Problem List (1) Pneumonia Impression: Shortness of breath has been his main complaint since admission with a cough. From a medical perspective we became sidetracked with his severely elevated glucose, acute kidney injury with dehydration, and iatrogenic bradycardia. We have held his metoprolol. Treated the glucose. shortness of breath continued. I worried about congestive heart failure but echo is with diastolic failure not systolic failure and mild pulmonary hypertension. I worried about PE and started on Lovenox. Chest x-ray now tells me that he has pneumonia. Plan: added Zosyn and continue Levaquin for healthcare associated risk. Day #2 Levaquin and finishing Day #1 of zosyn stop lovenox Qualifiers: Pneumonia type: due to unspecified organism Laterality: right Lung location: middle lobe of lung Qualified Code(s): J18.1 - Lobar pneumonia, unspecified organism (2) Dehydration Impression: On presentation to the emergency department the patient appeared very dry. Is is likely secondary to persistent hyperglycemia as the patient's glucose was in the 500s. 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 Patient denied any diarrhea nausea or vomiting. Patient's lab work was consistent with marked dehydration as his sodium was 131 , potassium was elevated to 6.5 his chloride was low down to 100 and he appear to have acute kidney injury with a creatinine of 2.3 from a baseline of 1.3. The patient also appeared very dry on examination. After 1 day in ICU with agressive IVF and insulin drip and now on Med Surg, he is improving. Not resolved yet and not at baseline but improving. Plan: IV fluids continued Encourage oral fluids Monitor electrolytes (3) MICHAELLE (acute kidney injury) Conclusion/Plan: Patient's baseline creatinine is 1.3 from 1 year ago Patient has poorly controlled diabetes and has chronic kidney disease on presentation his creatinine is 2.3 this could be progression of his CKD however it appears more likely to be acute kidney injury. The patient appears to have prerenal azotemia as he does have an elevated BUN low sodium elevated glucose and appears very dry on examination. Had gone down to 1.7 but then up to 1.9. Renal US done 11/21 shows large postvoid residual, bladder diverticuli but no hydro Plan: I had stopped IVF 11/20 so gave 2 liters 0.9 NS on 11/21 and hope that his creat will return to baseline. Rechecked BMP in afternoon 11/21 with no real change. Hold any nephrotoxic agents, will dc spironolactone for now Monitor potassium if not improving this is an indication for dialysis although patient is making good urine and potassium will likely improve. (4) Hyperkalemia Conclusion/Plan: Patient presented with hyperkalemia initial potassium was 6.5. Patient was given IV fluids and place on insulin drip and repeat potassium was still 7.2. Hyperkalemia is likely multifactorial secondary to acute kidney injury, severe hyperglycemia, use of potassium sparing diuretics and use of angiotensin receptor samantha at home for hypertension. EKG shows peaked T waves in the anterior leads. Treatment was calcium gluconate , IV insulin After treatment, K is returned to normal on 11/20 Resumed Cozar and spironolactone / but with rise in creat, spironolactone stopped. Plan: Monitor potassium closely (5) Hyperglycemia due to type 2 diabetes mellitus Conclusion/Plan: The patient presents with dehydration and severely elevated glucose up to 542 on presentation. Long history of noncompliance per he and his . A1c is >9% today and he tells me it's usually above 10%. Patient has acute kidney injury with hyperkalemia and hyponatremia that is slowly improving with treatment. The patient does not have polyuria or polydipsia there is positive serum ketones but pH is normal and there is no anion gap. Patient is mentating normally his does not appear to be hyper osmolar nonketotic hyperglycemia or DKA Hyperglycemia is likely secondary to noncompliance with insulin and diet. Plan: Given patient's severe hyperkalemia and acute kidney injury we placed the patient on an insulin drip and observed in the ICU Once hyperkalemia improved and blood sugars dropped to less than 300 we stopped insulin drip and started on subcutaneous insulin. Patient on Humalog U 500 4 times a day at home but noncompliant Once blood sugars improved, we transferred to [facility] and placed patient on Lantus 80 units twice a day and 30 units of fixed dose short acting with meals. He was still in 300's so added moderate sliding scale on top of that and he dropped to 160's 11/21. Today he has been 119, 153 and 137! Diabetic diet Nutrition consult Counseling on need for medication compliance. 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 Amlodipine, cozaar, spironolactone resumed and hydralazine added 11/20 but creat has bumped so stopped spironolactone, hydrate with 2 liters and repeat the creat. Today systolic 158-199. Monitor blood pressure closely Patient counseled on need for medication compliance Qualifiers: Hypertension type: essential hypertension Qualified Code(s): I10 - Essential (primary) hypertension (7) Hyponatremia Conclusion/Plan: Patient appears to have hypovolemic hyponatremia as he is dehydrated on examination and on lab work. Also there is some pseudohyponatremia secondary to severe hyperglycemia Patient has been given IV fluids and sodium on recheck is now normal. (8) Asthma Conclusion/Plan: The patient had mild wheezing on presentation with some mild shortness of breath and mild hypoxia Patient likely has a mild asthma exacerbation secondary to a URI that is now a pneumonia. Since the sob has not improved in the last 2 days, ECHO ordered to assess LVEF. He has an LVEF of 65-70% with Grade II diastolic dysfunction. Pulmonary pressures are coming up at 47 mmHg. No sig valvular heart disease. Mild LAE. Plan: Albuterol when necessary Supplemental oxygen Am holding off on steroids unless patient decompensates. I want to avoid raising his glucose again. On inhaled steroids. On abx. Qualifiers: Asthma severity: mild intermittent Asthma complication type: uncomplicated Qualified Code(s): J45.20 - Mild intermittent asthma, uncomplicated (9) CONNIE on CPAP Conclusion/Plan: continue home CPAP
[2016-11-22] MEDS ORDERED: LACTULOSE 10 GM /15 ML UDC PO SCH (19:55)
[2016-11-22] MEDS: traZODone 50 MG TABLET PO SCH (21:13)
[2016-11-22] MEDS: AMITRIPTYLINE 25 MG TABLET PO SCH (21:13)
[2016-11-22] MEDS: HYDROcod/ACETAM 5/325 MG TABLET PO PRN (23:11)
[2016-11-23] MEDS: PIPERACILLIN/TAZOBACTAM 3.375 GM in SODIUM CHLORIDE 0.9% MINIBAG 100 ML IV SCH ×3 (04:26→22:39)
[2016-11-23] MEDS: SODIUM CHLORIDE 0.9% 1,000 ML IV SCH (04:26)
[2016-11-23] MEDS: SODIUM CHLORIDE FLUSH 0.9% 10 ML SYRINGE IVP SCH ×2 (05:01→12:55)
[2016-11-23] MEDS: ALBUTEROL NEB 2.5 MG/3 ML INH PRN (09:00)
[2016-11-23] MEDS: BUDESONIDE 0.5 MG/2 ML NEB INH SCH ×2 (09:00→23:16)
[2016-11-23] MEDS: POLYETHYLENE GLYCOL 3350 17 GM PACKET PO SCH (09:21)
[2016-11-23] MEDS: amLODIPine 5 MG TABLET PO SCH (09:22)
[2016-11-23] MEDS: DOCUSATE SODIUM 250 MG CAPSULE PO SCH (09:22)
[2016-11-23] MEDS: ATORVASTATIN 40 MG TABLET PO SCH (09:22)
[2016-11-23] MEDS: ASPIRIN 325 MG TABLET PO SCH (09:22)
[2016-11-23] MEDS: levoFLOXacin 250 MG TABLET PO SCH (09:22)
[2016-11-23] MEDS: LOSARTAN 50 MG TABLET PO SCH (09:22)
[2016-11-23] MEDS: SENNA 8.6 MG TABLET PO SCH (09:23)
[2016-11-23] MEDS: INSULIN ASPART 300 UNIT/3 ML PEN SUBQ SCH ×7 (09:23→22:40)
[2016-11-23] MEDS: INSULIN GLARGINE 300 UNIT/3 ML PEN SUBQ SCH ×2 (09:24→22:54)
[2016-11-23] MEDS: METOPROLOL SUCCINATE 50 MG TABLET PO SCH (11:55)
--- NOTE | 2016-11-23 12:01 | PROVIDER PROGRESS NOTE ---
Assessment/Plan - Problem List (1) Acute renal failure Qualifiers: Acute renal failure type: unspecified Qualified Code(s): N17.9 - Acute kidney failure, unspecified Assessment/Plan: Florencio is urinating ok No lab today it is pending. His last creatinine was 1.9 WILL RE-EVAL AFTER LAB. HIS KCLIS BACK TO NML. (2) Hypertension Qualifiers: Hypertension type: essential hypertension Qualified Code(s): I10 - Essential (primary) hypertension Assessment/Plan: It is poorly control. Will restart back his Metoprolol will need to watch for bradycardia. Think it may have been as a result of his dehydration. (3) Pneumonia Assessment/Plan: He is doing better and can breathe better Will get F/U CXR tomorrow am - Current Meds Current Meds: Current Medications Generic Name Dose Route Start Last Admin Trade Name Freq PRN Reason Stop Dose Admin Acetaminophen 650 mg 11/19/16 17:25 11/22/16 23:09 Tylenol PO 650 mg Q4HR PRN Administration Pain 1 to 4 Acetaminophen/Hydrocodone Bitart 1 tab 11/19/16 17:25 11/22/16 23:11 [place] 5/325 PO 1 tab Q4HR PRN Administration Pain 5 to 7 Albuterol 2.5 mg 11/19/16 17:25 11/23/16 09:00 INH 2.5 mg Q4HR PRN Administration Wheezing Amitriptyline HCl 50 mg 11/20/16 21:00 11/22/16 21:13 Elavil PO 50 mg QPM [facility] Administration Amlodipine Besylate 5 mg 11/19/16 23:00 11/23/16 09:22 Norvasc PO 5 mg DAILY [facility] Administration Aspirin 325 mg 11/20/16 09:00 11/23/16 09:22 Zoie PO 325 mg DAILY [facility] Administration Atorvastatin Calcium 80 mg 11/20/16 09:00 11/23/16 09:22 Lipitor PO 80 mg DAILY [facility] Administration Budesonide 0.5 mg 11/20/16 19:00 11/23/16 09:00 Pulmicort INH 0.5 mg RTBID [facility] Administration Docusate Sodium 250 - 500 mg 11/20/16 19:00 11/23/16 09:22 Colace 250mg Capsule PO 500 mg DAILY [facility] Administration Hydralazine HCl 10 mg 11/20/16 19:31 11/22/16 23:00 Apresoline Inj IVP 10 mg TID PRN Administration for BP >170 systolic or 90 marylou Piperacillin Sod/Tazobactam 100 mls @ 25 mls/hr 11/21/16 12:00 11/23/16 04:26 Sod 3.375 gm/ Sodium Chloride IV 25 mls/hr Q8H [facility] Administration Insulin Aspart 30 unit 11/20/16 08:00 11/23/16 11:54 Novolog SUBQ 30 unit TIDWM [facility] Administration Protocol Insulin Aspart 3 - 11 unit 11/20/16 17:00 11/23/16 11:55 Novolog SUBQ 3 unit 0800,1200,1700,2100 [facility] Administration Protocol Insulin Glargine 80 unit 11/19/16 23:00 11/23/16 09:24 Lantus Solostar SUBQ 80 unit BID [facility] Administration Levofloxacin 750 mg 11/20/16 12:00 11/23/16 09:22 Levaquin PO 750 mg DAILY [facility] Administration Losartan Potassium 100 mg 11/19/16 23:00 11/23/16 09:22 Cozaar PO 100 mg DAILY [facility] Administration Metoprolol Succinate 100 mg 11/23/16 12:00 11/23/16 11:55 Toprol Xl PO 100 mg DAILY [facility] Administration Polyethylene Glycol 17 gm 11/20/16 19:00 11/23/16 09:21 Miralax PO 17 gm DAILY [facility] Administration Senna 8.6 - 17.2 mg 11/20/16 19:00 11/23/16 09:23 Senokot PO 8.6 mg DAILY [facility] Administration Sodium Chloride 10 ml 11/19/16 22:00 11/23/16 05:01 Normal Saline Flush 0.9% IVP Not Given Q8HR [facility] Trazodone HCl 50 mg 11/19/16 22:41 11/22/16 21:13 Desyrel PO 50 mg QPM [facility] Administration - Lab Result Fish Bone Diagrams: 11/20/16 04:44 11/22/16 05:35 - Additional Planning My Orders: My Active Orders 11/23/16 05:00 CBC - COMP BLD CT W/AUTO DIFF [HEME] DAILYLAB CMP [COMPREHENSIVE METABOLIC PANEL] [CHEM] DAILYLAB 11/23/16 12:00 Esomeprazole Magnesium [Esomeprazole Magnesium] 40 mg PO DAILY Metoprolol Succinate [Toprol Xl] 100 mg PO DAILY traZODone [Desyrel] 75 mg PO HS 11/24/16 05:00 CBC - COMP BLD CT W/AUTO DIFF [HEME] DAILYLAB CMP [COMPREHENSIVE METABOLIC PANEL] [CHEM] DAILYLAB Subjective - Subjective Patient Reports: Feeling Better, Resting Comfortably Nursing Reports: No Complaints, Shortness of Breath Objective Vital Signs: Vital Signs - 24 hr 11/22/16 11/22/16 11/22/16 12:57 16:16 19:45 Temperature 36.8 C 36.3 C L Heart Rate 92 Heart Rate [ 104 H 94 Brachial] Respiratory 18 18 20 Rate Blood Pressure Blood Pressure [Left Brachial artery] Blood Pressure 158/64 H 175/72 H [Right Brachial artery] O2 Saturation 95 98 11/22/16 11/22/16 11/22/16 21:00 23:05 23:10 Temperature 36.7 C Heart Rate Heart Rate [ 91 Brachial] Respiratory 18 Rate Blood Pressure Blood Pressure [Left Brachial artery] Blood Pressure 170/90 H 195/35 H 175/55 H [Right Brachial artery] O2 Saturation 96 11/22/16 11/22/16 11/22/16 23:18 23:25 23:30 Temperature 36.8 C Heart Rate Heart Rate [ 104 H Brachial] Respiratory 18 Rate Blood Pressure 168/60 H Blood Pressure 160/60 H [Left Brachial artery] Blood Pressure 180/50 H [Right Brachial artery] O2 Saturation 93 11/22/16 11/23/16 11/23/16 23:40 00:09 00:10 Temperature Heart Rate Heart Rate [ 104 H Brachial] Respiratory Rate Blood Pressure Blood Pressure [Left Brachial artery] Blood Pressure 170/60 H 168/58 H 168/60 H [Right Brachial artery] O2 Saturation 11/23/16 11/23/16 11/23/16 05:00 07:52 09:00 Temperature 36.4 C L 36.4 C L Heart Rate 97 Heart Rate [ 99 94 Brachial] Respiratory 18 18 18 Rate Blood Pressure Blood Pressure [Left Brachial artery] Blood Pressure 160/90 H 188/83 H [Right Brachial artery] O2 Saturation 94 91 L 11/23/16 11:03 Temperature 36.4 C L Heart Rate Heart Rate [ 102 H Brachial] Respiratory 20 Rate Blood Pressure Blood Pressure [Left Brachial artery] Blood Pressure 195/88 H [Right Brachial artery] O2 Saturation 93 Oxygen O2 Source Room air I&O (Last 24 Hrs): Intake and Output Totals x24h 11/21/16 11/22/16 11/23/16 23:59 23:59 23:59 Intake Total 2062 2123 550 Output Total 1200 Balance 2062 924 550 General: Alert, Oriented x3, Cooperative HEENT: PERRLA Neck: No JVD, No thyromegaly Lymphatic: no adenopathy Neuro: Alert, Oriented Times 3 Cardiovascular: Regular rate, No murmurs Respiratory: No respiratory distress, Breath sounds nml Abdomen: Normal bowel sounds, Soft Extremities: No clubbing, Other (1+ edema. pt says is chronic but not better in am than pm.) - Results Results: Laboratory Results WBC 10.3 x10^3/uL (4.8-10.8) 11/20/16 04:44 RBC 3.16 10^6/uL (4.70-6.10) L 11/20/16 04:44 Hgb 9.6 g/dL (14.0-18.0) L 11/20/16 04:44 Hct 27.8 % (42.0-52.0) L 11/20/16 04:44 MCV 88.0 fL (80.0-94.0) 11/20/16 04:44 MCH 30.4 pg (27.0-31.0) 11/20/16 04:44 MCHC 34.6 g/dL (32.0-36.0) 11/20/16 04:44 RDW 13.1 % (12.0-15.0) 11/20/16 04:44 Plt Count 161 10^3/uL (130-450) 11/20/16 04:44 MPV 8.4 fL (7.4-11.4) 11/20/16 04:44 Neut # 7.2 10^3/uL (1.5-6.6) H 11/20/16 04:44 Lymph # 1.9 10^3/uL (1.5-3.5) 11/20/16 04:44 [place] # 0.9 10^3/uL (0.0-1.0) 11/20/16 04:44 Eos # 0.2 10^3/uL (0.0-0.7) 11/20/16 04:44 Baso # 0.0 10^3/uL (0.0-0.1) 11/20/16 04:44 Absolute Nucleated RBC 0.00 x10^3/uL 11/20/16 04:44 Nucleated RBCs 0.0 /100WBC 11/20/16 04:44 VBG pH 7.419 (7.31-7.41) H 11/22/16 05:35 VBG pCO2 35.4 mmHg (41-51) L 11/22/16 05:35 VBG pO2 46.9 mmHg (25-47) 11/22/16 05:35 VBG HCO3 22.4 mmol/L (23-28) L 11/22/16 05:35 VBG Total CO2 23.5 mmol/L (24-29) L 11/22/16 05:35 VBG O2 Saturation 84.7 % (60-80) H 11/22/16 05:35 VBG Base Excess -1.7 mmol/L (-2 - +2) 11/22/16 05:35 Sodium 137 mmol/L (135-145) 11/22/16 05:35 Potassium 4.5 mmol/L (3.5-5.0) 11/22/16 05:35 Chloride 108 mmol/L (101-111) 11/22/16 05:35 Carbon Dioxide 21 mmol/L (21-32) 11/22/16 05:35 Anion Gap 8.0 (6-13) 11/22/16 05:35 BUN 27 mg/dL (6-20) H 11/22/16 05:35 Creatinine 1.9 mg/dL (0.6-1.2) H 11/22/16 05:35 Estimated GFR (MDRD) 36 (>89) L 11/22/16 05:35 Glucose 129 mg/dL (70-100) H 11/22/16 05:35 POC Whole Bld Glucose 141 mg/dL (70 - 100) H 11/23/16 11:00 Glycated Hemoglobin 9.1 % (4.6-6.2) H 11/20/16 12:13 Estim Average Glucose 214 (70-100) H 11/20/16 12:13 Calcium 8.2 mg/dL (8.5-10.3) L 11/22/16 05:35 Ionized Calcium YES 11/19/16 22:35 Phosphorus 3.8 mg/dL (2.5-4.6) 11/20/16 04:44 Magnesium 1.9 mg/dL (1.7-2.8) 11/20/16 04:44 Total Bilirubin 0.7 mg/dL (0.2-1.0) 11/19/16 16:00 AST 20 IU/L (10-42) 11/19/16 16:00 ALT 22 IU/L (10-60) 11/19/16 16:00 Alkaline Phosphatase 68 IU/L (42-121) 11/19/16 16:00 Troponin I 0.04 ng/mL (<0.49) 11/19/16 16:00 B-Natriuretic Peptide 639 pg/mL (5-100) H 11/20/16 16:53 Total Protein 7.1 g/dL (6.7-8.2) 11/19/16 16:00 Albumin 2.7 g/dL (3.2-5.5) L 11/20/16 04:44 Globulin 3.6 g/dL (2.1-4.2) 11/19/16 16:00 Albumin/Globulin Ratio 1.0 (1.0-2.2) 11/19/16 16:00 Lipase 11 U/L (22-51) L 11/19/16 16:00 Serum Ketones MODERATE (NEGATIVE) H 11/19/16 16:00
[2016-11-23 12:21] LABS: BASOPHILS % (AUTO) 0.4 %; EOSINOPHILS # (AUTO) 0.2 10^3/uL (0.0-0.7); EOSINOPHILS % (AUTO) 2.7 %; HCT - HEMATOCRIT 28.6 % (42.0-52.0); HGB - HEMOGLOBIN 9.8 g/dL (14.0-18.0); LYMPHOCYTES % (AUTO) 10.9 %; MEAN CORPUSCULAR HEMOGLOBIN 30.1 pg (27.0-31.0); MEAN CORPUSCULAR HGB CONC 34.3 g/dL (32.0-36.0); MEAN CORPUSCULAR VOLUME 87.7 fL (80.0-94.0); MEAN PLATELET VOLUME 7.1 fL (7.4-11.4); MONOCYTES # (AUTO) 0.8 10^3/uL (0.0-1.0); MONOCYTES % (AUTO) 8.3 %; NEUTROPHILS # (AUTO) 7.2 10^3/uL (1.5-6.6); NEUTROPHILS % (AUTO) 77.7 %; NUCLEATED RED BLOOD CELLS AUTO 0.1 /100WBC; RED BLOOD COUNT 3.26 10^6/uL (4.70-6.10); RED CELL DISTRIBUTION WIDTH 13.4 % (12.0-15.0); UNCORRECTED WHITE BLOOD COUNT 9.3 x10^3/uL; WHITE BLOOD COUNT 9.3 x10^3/uL (4.8-10.8)
[2016-11-23 12:40] LABS: ALBUMIN/GLOBULIN RATIO 0.7 (1.0-2.2); BILIRUBIN,TOTAL 0.4 mg/dL (0.2-1.0); CALCIUM 8.5 mg/dL (8.5-10.3); POTASSIUM 4.3 mmol/L (3.5-5.0); TOTAL PROTEIN 6.9 g/dL (6.7-8.2)
[2016-11-23] MEDS: PANTOPRAZOLE 40 MG TABLET PO SCH (17:05)
[2016-11-23] MEDS: traZODone 50 MG TABLET PO SCH (22:39)
[2016-11-23] MEDS: AMITRIPTYLINE 25 MG TABLET PO SCH (22:40)
[2016-11-24] MEDS: SODIUM CHLORIDE FLUSH 0.9% 10 ML SYRINGE IVP SCH ×4 (04:09→20:39)
[2016-11-24] MEDS: PIPERACILLIN/TAZOBACTAM 3.375 GM in SODIUM CHLORIDE 0.9% MINIBAG 100 ML IV SCH ×3 (04:44→20:35)
[2016-11-24 05:53] LABS: BASOPHILS # (AUTO) 0.1 10^3/uL (0.0-0.1); BASOPHILS % (AUTO) 0.6 %; EOSINOPHILS # (AUTO) 0.4 10^3/uL (0.0-0.7); EOSINOPHILS % (AUTO) 4.8 %; HCT - HEMATOCRIT 29.7 % (42.0-52.0); HGB - HEMOGLOBIN 10.1 g/dL (14.0-18.0); LYMPHOCYTES # (AUTO) 1.4 10^3/uL (1.5-3.5); LYMPHOCYTES % (AUTO) 15.4 %; MEAN CORPUSCULAR HEMOGLOBIN 30.3 pg (27.0-31.0); MEAN CORPUSCULAR HGB CONC 34.1 g/dL (32.0-36.0); MEAN CORPUSCULAR VOLUME 88.9 fL (80.0-94.0); MEAN PLATELET VOLUME 7.3 fL (7.4-11.4); MONOCYTES # (AUTO) 0.9 10^3/uL (0.0-1.0); MONOCYTES % (AUTO) 9.6 %; NEUTROPHILS # (AUTO) 6.4 10^3/uL (1.5-6.6); NEUTROPHILS % (AUTO) 69.6 %; NUCLEATED RED BLOOD CELLS AUTO 0.1 /100WBC; RED BLOOD COUNT 3.34 10^6/uL (4.70-6.10); RED CELL DISTRIBUTION WIDTH 13.6 % (12.0-15.0); UNCORRECTED WHITE BLOOD COUNT 9.1 x10^3/uL; WHITE BLOOD COUNT 9.1 x10^3/uL (4.8-10.8)
[2016-11-24 06:06] LABS: ALBUMIN/GLOBULIN RATIO 0.7 (1.0-2.2); BILIRUBIN,TOTAL 0.5 mg/dL (0.2-1.0); CALCIUM 8.2 mg/dL (8.5-10.3); POTASSIUM 4.4 mmol/L (3.5-5.0); TOTAL PROTEIN 7.1 g/dL (6.7-8.2)
[2016-11-24] MEDS: PANTOPRAZOLE 40 MG TABLET PO SCH ×2 (06:51→17:03)
[2016-11-24] MEDS: ALBUTEROL NEB 2.5 MG/3 ML INH PRN ×3 (07:54→19:40)
[2016-11-24] MEDS: BUDESONIDE 0.5 MG/2 ML NEB INH SCH ×2 (07:54→23:42)
[2016-11-24] MEDS: SENNA 8.6 MG TABLET PO SCH (08:23)
[2016-11-24] MEDS: DOCUSATE SODIUM 250 MG CAPSULE PO SCH (08:23)
[2016-11-24] MEDS: INSULIN ASPART 300 UNIT/3 ML PEN SUBQ SCH ×7 (08:24→20:42)
[2016-11-24] MEDS: METOPROLOL SUCCINATE 50 MG TABLET PO SCH (08:24)
[2016-11-24] MEDS: LOSARTAN 50 MG TABLET PO SCH (08:24)
[2016-11-24] MEDS: ATORVASTATIN 40 MG TABLET PO SCH (08:24)
[2016-11-24] MEDS: amLODIPine 5 MG TABLET PO SCH (08:24)
[2016-11-24] MEDS: levoFLOXacin 250 MG TABLET PO SCH (08:24)
[2016-11-24] MEDS: ASPIRIN 325 MG TABLET PO SCH (08:24)
[2016-11-24] MEDS: INSULIN GLARGINE 300 UNIT/3 ML PEN SUBQ SCH ×2 (08:28→22:36)
[2016-11-24] MEDS: POLYETHYLENE GLYCOL 3350 17 GM PACKET PO SCH (08:32)
--- NOTE | 2016-11-24 09:15 | XRAY Report ---
TWO-VIEW CHEST: 11/24/2016 CLINICAL INDICATION: Pneumonia. COMPARISON: 11/20/2016 FINDINGS: Frontal and lateral views of the chest demonstrate an enlarged cardiac silhouette. There are right upper and left lower lobe infiltrates present, with trace effusions. No pneumothorax. IMPRESSION: RIGHT UPPER AND LEFT LOWER LOBE INFILTRATES, WITH TRACE EFFUSIONS. JOB #: [id number] EXT JOB #:[id number]
--- NOTE | 2016-11-24 10:55 | PROVIDER PROGRESS NOTE ---
Assessment/Plan - Problem List (1) Acute renal failure Qualifiers: Acute renal failure type: unspecified Qualified Code(s): N17.9 - Acute kidney failure, unspecified Assessment/Plan: His ARF has not further deteriorated Will continue to monitor (2) Hypertension Qualifiers: Hypertension type: essential hypertension Qualified Code(s): I10 - Essential (primary) hypertension Assessment/Plan: HTN uncontrolled. With hx of bradycardia will decrease the Metoprolol and increase the Norvasc ad start small dose of lasix. If not enough will add Clonidine, probably as a patch. (3) Pneumonia Assessment/Plan: He feels more dyspnea today. says min exertion even at rest has air hunger. on exam when not talking huyperventilates but his O2 sat 93% CXR shows some clearing and some extension of the infiltrates. Will start low dose Xanax to see if improves, Lasix may also help. - Current Meds Current Meds: Current Medications Generic Name Dose Route Start Last Admin Trade Name Freq PRN Reason Stop Dose Admin Acetaminophen 650 mg 11/19/16 17:25 11/22/16 23:09 Tylenol PO 650 mg Q4HR PRN Administration Pain 1 to 4 Acetaminophen/Hydrocodone Bitart 1 tab 11/19/16 17:25 11/22/16 23:11 [place] 5/325 PO 1 tab Q4HR PRN Administration Pain 5 to 7 Albuterol 2.5 mg 11/19/16 17:25 11/24/16 07:54 INH 2.5 mg Q4HR PRN Administration Wheezing Amitriptyline HCl 50 mg 11/20/16 21:00 11/23/16 22:40 Elavil PO 50 mg QPM ELLIOT Administration Amlodipine Besylate 5 mg 11/19/16 23:00 11/24/16 08:24 Norvasc PO 5 mg DAILY ELLIOT Administration Aspirin 325 mg 11/20/16 09:00 11/24/16 08:24 Zoie PO 325 mg DAILY ELLIOT Administration Atorvastatin Calcium 80 mg 11/20/16 09:00 11/24/16 08:24 Lipitor PO 80 mg DAILY ELLIOT Administration Budesonide 0.5 mg 11/20/16 19:00 11/24/16 07:54 Pulmicort INH 0.5 mg RTBID ELLIOT Administration Docusate Sodium 250 - 500 mg 11/20/16 19:00 11/24/16 08:23 Colace 250mg Capsule PO 500 mg DAILY ELLIOT Administration Hydralazine HCl 10 mg 11/20/16 19:31 11/22/16 23:00 Apresoline Inj IVP 10 mg TID PRN Administration for BP >170 systolic or 90 marylou Piperacillin Sod/Tazobactam 100 mls @ 25 mls/hr 11/21/16 12:00 11/24/16 04:44 Sod 3.375 gm/ Sodium Chloride IV 25 mls/hr Q8H ELLIOT Administration Insulin Aspart 30 unit 11/20/16 08:00 11/24/16 08:24 Novolog SUBQ Not Given TIDWM [facility] Protocol Insulin Aspart 3 - 11 unit 11/20/16 17:00 11/24/16 08:24 Novolog SUBQ Not Given 0800,1200,1700,2100 [facility] Protocol Insulin Glargine 80 unit 11/19/16 23:00 11/24/16 08:28 Lantus Solostar SUBQ Not Given BID ELLIOT Levofloxacin 750 mg 11/20/16 12:00 11/24/16 08:24 Levaquin PO 750 mg DAILY ELLIOT Administration Losartan Potassium 100 mg 11/19/16 23:00 11/24/16 08:24 Cozaar PO 100 mg DAILY ELLIOT Administration Metoprolol Succinate 100 mg 11/23/16 12:00 11/24/16 08:24 Toprol Xl PO 100 mg DAILY ELLIOT Administration Pantoprazole Sodium 40 mg 11/23/16 16:00 11/24/16 06:51 Protonix PO 40 mg BIDAC ELLIOT Administration Polyethylene Glycol 17 gm 11/20/16 19:00 11/24/16 08:32 Miralax PO 17 gm DAILY ELLIOT Administration Senna 8.6 - 17.2 mg 11/20/16 19:00 11/24/16 08:23 Senokot PO 8.6 mg DAILY ELLIOT Administration Sodium Chloride 10 ml 11/19/16 22:00 11/24/16 06:49 Normal Saline Flush 0.9% IVP Not Given Q8HR ELLIOT Trazodone HCl 75 mg 11/23/16 21:00 11/23/16 22:39 Desyrel PO 75 mg QPM ELLIOT Administration - Lab Result Fish Bone Diagrams: 11/24/16 05:31 11/24/16 05:31 - Additional Planning My Orders: My Active Orders 11/23/16 12:00 Metoprolol Succinate [Toprol Xl] 100 mg PO DAILY 11/23/16 16:00 Pantoprazole [Protonix] 40 mg PO BIDAC 11/23/16 21:00 traZODone [Desyrel] 75 mg PO QPM 11/24/16 11:00 ALPRAZolam [Xanax] 0.25 mg PO TID Subjective - Subjective Patient Reports: Shortness of Breath Nursing Reports: Shortness of Breath Objective Vital Signs: Vital Signs - 24 hr 11/23/16 11/23/16 11/23/16 11:03 17:25 20:25 Temperature 36.4 C L 36.6 C Heart Rate 64 Heart Rate [ 102 H 69 Brachial] Respiratory 20 18 18 Rate Blood Pressure 195/88 H 167/79 H [Right Brachial artery] O2 Saturation 93 95 11/23/16 11/23/16 11/24/16 22:47 23:49 04:48 Temperature 36.6 C 36.6 C 36.9 C Heart Rate Heart Rate [ 71 72 69 Brachial] Respiratory 18 20 20 Rate Blood Pressure 186/82 H 164/86 H 172/81 H [Right Brachial artery] O2 Saturation 95 93 93 11/24/16 11/24/16 07:41 07:55 Temperature 36.7 C Heart Rate 67 Heart Rate [ 67 Brachial] Respiratory 20 20 Rate Blood Pressure 196/92 H [Right Brachial artery] O2 Saturation 92 Oxygen O2 Source Room air I&O (Last 24 Hrs): Intake and Output Totals x24h 11/22/16 11/23/16 11/24/16 23:59 23:59 23:59 Intake Total 2124 1902 656 Output Total 1200 500 400 Balance 924 1402 256 General: Alert, Oriented x3, Cooperative HEENT: PERRLA, EOMI Neck: Supple, No JVD, No thyromegaly Neuro: Alert, Oriented Times 3 Cardiovascular: Regular rate Respiratory: Chest non-tender, Rales Extremities: No cyanosis, No edema Skin: No rashes, No breakdown - Results Results: Laboratory Results WBC 9.1 x10^3/uL (4.8-10.8) 11/24/16 05:31 RBC 3.34 10^6/uL (4.70-6.10) L 11/24/16 05:31 Hgb 10.1 g/dL (14.0-18.0) L 11/24/16 05:31 Hct 29.7 % (42.0-52.0) L 11/24/16 05:31 MCV 88.9 fL (80.0-94.0) 11/24/16 05:31 MCH 30.3 pg (27.0-31.0) 11/24/16 05:31 MCHC 34.1 g/dL (32.0-36.0) 11/24/16 05:31 RDW 13.6 % (12.0-15.0) 11/24/16 05:31 Plt Count 264 10^3/uL (130-450) 11/24/16 05:31 MPV 7.3 fL (7.4-11.4) L 11/24/16 05:31 Neut # 6.4 10^3/uL (1.5-6.6) 11/24/16 05:31 Lymph # 1.4 10^3/uL (1.5-3.5) L 11/24/16 05:31 [place] # 0.9 10^3/uL (0.0-1.0) 11/24/16 05:31 Eos # 0.4 10^3/uL (0.0-0.7) 11/24/16 05:31 Baso # 0.1 10^3/uL (0.0-0.1) 11/24/16 05:31 Absolute Nucleated RBC 0.01 x10^3/uL 11/24/16 05:31 Nucleated RBCs 0.1 /100WBC 11/24/16 05:31 VBG pH 7.419 (7.31-7.41) H 11/22/16 05:35 VBG pCO2 35.4 mmHg (41-51) L 11/22/16 05:35 VBG pO2 46.9 mmHg (25-47) 11/22/16 05:35 VBG HCO3 22.4 mmol/L (23-28) L 11/22/16 05:35 VBG Total CO2 23.5 mmol/L (24-29) L 11/22/16 05:35 VBG O2 Saturation 84.7 % (60-80) H 11/22/16 05:35 VBG Base Excess -1.7 mmol/L (-2 - +2) 11/22/16 05:35 Sodium 138 mmol/L (135-145) 11/24/16 05:31 Potassium 4.4 mmol/L (3.5-5.0) 11/24/16 05:31 Chloride 107 mmol/L (101-111) 11/24/16 05:31 Carbon Dioxide 21 mmol/L (21-32) 11/24/16 05:31 Anion Gap 10.0 (6-13) 11/24/16 05:31 BUN 31 mg/dL (6-20) H 11/24/16 05:31 Creatinine 2.0 mg/dL (0.6-1.2) H 11/24/16 05:31 Estimated GFR (MDRD) 34 (>89) L 11/24/16 05:31 Glucose 70 mg/dL (70-100) 11/24/16 05:31 POC Whole Bld Glucose 63 mg/dL (70 - 100) L 11/24/16 07:38 Glycated Hemoglobin 9.1 % (4.6-6.2) H 11/20/16 12:13 Estim Average Glucose 214 (70-100) H 11/20/16 12:13 Calcium 8.2 mg/dL (8.5-10.3) L 11/24/16 05:31 Ionized Calcium YES 11/19/16 22:35 Phosphorus 3.8 mg/dL (2.5-4.6) 11/20/16 04:44 Magnesium 1.9 mg/dL (1.7-2.8) 11/20/16 04:44 Total Bilirubin 0.5 mg/dL (0.2-1.0) 11/24/16 05:31 AST 34 IU/L (10-42) 11/24/16 05:31 ALT 32 IU/L (10-60) 11/24/16 05:31 Alkaline Phosphatase 84 IU/L (42-121) 11/24/16 05:31 Troponin I 0.04 ng/mL (<0.49) 11/19/16 16:00 B-Natriuretic Peptide 639 pg/mL (5-100) H 11/20/16 16:53 Total Protein 7.1 g/dL (6.7-8.2) 11/24/16 05:31 Albumin 2.9 g/dL (3.2-5.5) L 11/24/16 05:31 Globulin 4.2 g/dL (2.1-4.2) 11/24/16 05:31 Albumin/Globulin Ratio 0.7 (1.0-2.2) L 11/24/16 05:31 Lipase 11 U/L (22-51) L 11/19/16 16:00 Serum Ketones MODERATE (NEGATIVE) H 11/19/16 16:00
[2016-11-24] MEDS ORDERED: ALPRAZolam 0.25 MG TABLET PO SCH (11:00)
[2016-11-24] MEDS: FUROSEMIDE 20 MG TABLET PO SCH (11:17)
[2016-11-24] MEDS: ALPRAZolam 0.25 MG TABLET PO SCH ×2 (17:03→22:36)
[2016-11-24] MEDS: hydrALAZINE INJ 20 MG/ML VIAL IVP PRN (17:14)
[2016-11-24] MEDS ORDERED: FUROSEMIDE 40 MG/4 ML VIAL IVP SCH (19:53)
[2016-11-24] MEDS: AMITRIPTYLINE 25 MG TABLET PO SCH (21:20)
[2016-11-24] MEDS: traZODone 50 MG TABLET PO SCH (22:36)
[2016-11-25] MEDS: PIPERACILLIN/TAZOBACTAM 3.375 GM in SODIUM CHLORIDE 0.9% MINIBAG 100 ML IV SCH ×3 (04:07→21:16)
[2016-11-25] MEDS: SODIUM CHLORIDE FLUSH 0.9% 10 ML SYRINGE IVP SCH ×3 (04:08→21:24)
[2016-11-25] MEDS: PANTOPRAZOLE 40 MG TABLET PO SCH ×2 (06:08→16:28)
[2016-11-25] MEDS: ALPRAZolam 0.25 MG TABLET PO SCH ×3 (06:08→21:16)
[2016-11-25] MEDS: POLYETHYLENE GLYCOL 3350 17 GM PACKET PO SCH (08:38)
[2016-11-25] MEDS: amLODIPine 5 MG TABLET PO SCH (08:40)
[2016-11-25] MEDS: levoFLOXacin 250 MG TABLET PO SCH (08:40)
[2016-11-25] MEDS: FUROSEMIDE 20 MG TABLET PO SCH (08:40)
[2016-11-25] MEDS: ATORVASTATIN 40 MG TABLET PO SCH (08:40)
[2016-11-25] MEDS: METOPROLOL SUCCINATE 50 MG TABLET PO SCH (08:40)
[2016-11-25] MEDS: SENNA 8.6 MG TABLET PO SCH ×2 (08:40→21:16)
[2016-11-25] MEDS: LOSARTAN 50 MG TABLET PO SCH (08:41)
[2016-11-25] MEDS: INSULIN GLARGINE 300 UNIT/3 ML PEN SUBQ SCH ×2 (08:41→21:17)
[2016-11-25] MEDS: DOCUSATE SODIUM 250 MG CAPSULE PO SCH (08:41)
[2016-11-25] MEDS: ASPIRIN 325 MG TABLET PO SCH (08:41)
[2016-11-25] MEDS: INSULIN ASPART 300 UNIT/3 ML PEN SUBQ SCH ×7 (08:42→21:17)
[2016-11-25] MEDS: ALBUTEROL NEB 2.5 MG/3 ML INH PRN ×2 (08:52→20:39)
[2016-11-25] MEDS: BUDESONIDE 0.5 MG/2 ML NEB INH SCH ×2 (08:52→20:39)
[2016-11-25] MEDS: hydrALAZINE INJ 20 MG/ML VIAL IVP PRN (12:53)
--- NOTE | 2016-11-25 15:04 | PROVIDER PROGRESS NOTE ---
Assessment/Plan - Problem List (1) Acute renal failure Qualifiers: Acute renal failure type: unspecified Qualified Code(s): N17.9 - Acute kidney failure, unspecified Assessment/Plan: His ARF has not deteriorated further (2) Hypertension Qualifiers: Hypertension type: essential hypertension Qualified Code(s): I10 - Essential (primary) hypertension Assessment/Plan: His BP is still very high at times. (3) Pneumonia Assessment/Plan: Last CXR showed migrated infiltrates to rht upper lobes. Angelo says he is breathing easier. WIll get CT Chest tomorrow am - Current Meds Current Meds: Current Medications Generic Name Dose Route Start Last Admin Trade Name Freq PRN Reason Stop Dose Admin Acetaminophen 650 mg 11/19/16 17:25 11/22/16 23:09 Tylenol PO 650 mg Q4HR PRN Administration Pain 1 to 4 Acetaminophen/Hydrocodone Bitart 1 tab 11/19/16 17:25 11/22/16 23:11 [place] 5/325 PO 1 tab Q4HR PRN Administration Pain 5 to 7 Albuterol 2.5 mg 11/19/16 17:25 11/25/16 08:52 INH 2.5 mg Q4HR PRN Administration Wheezing Alprazolam 0.25 mg 11/24/16 16:00 11/25/16 13:20 Xanax PO 0.25 mg TID ELLIOT Administration Amitriptyline HCl 50 mg 11/20/16 21:00 11/24/16 21:20 Elavil PO 50 mg QPM ELLIOT Administration Amlodipine Besylate 10 mg 11/24/16 11:00 11/25/16 08:40 Norvasc PO 10 mg DAILY ELLIOT Administration Aspirin 325 mg 11/20/16 09:00 11/25/16 08:41 Zoie PO 325 mg DAILY ELLIOT Administration Atorvastatin Calcium 80 mg 11/20/16 09:00 11/25/16 08:40 Lipitor PO 80 mg DAILY ELLIOT Administration Budesonide 0.5 mg 11/20/16 19:00 11/25/16 08:52 Pulmicort INH 0.5 mg RTBID ELLIOT Administration Docusate Sodium 250 - 500 mg 11/20/16 19:00 11/25/16 08:41 Colace 250mg Capsule PO 500 mg DAILY ELLIOT Administration Furosemide 20 mg 11/24/16 11:00 11/25/16 08:40 Lasix PO 20 mg DAILY ELLIOT Administration Hydralazine HCl 10 mg 11/20/16 19:31 11/25/16 12:53 Apresoline Inj IVP 10 mg TID PRN Administration for BP >170 systolic or 90 marylou Piperacillin Sod/Tazobactam 100 mls @ 25 mls/hr 11/21/16 12:00 11/25/16 12:53 Sod 3.375 gm/ Sodium Chloride IV 25 mls/hr Q8H ELLIOT Administration Insulin Aspart 30 unit 11/20/16 08:00 11/25/16 12:00 Novolog SUBQ 30 unit TIDWM ELLIOT Administration Protocol Insulin Aspart 3 - 11 unit 11/20/16 17:00 11/25/16 12:00 Novolog SUBQ 7 unit 0800,1200,1700,2100 ELLIOT Administration Protocol Insulin Glargine 40 unit 11/24/16 21:00 11/25/16 08:41 Lantus Solostar SUBQ 40 unit BID ELLIOT Administration Levofloxacin 750 mg 11/20/16 12:00 11/25/16 08:40 Levaquin PO 750 mg DAILY ELLIOT Administration Losartan Potassium 100 mg 11/19/16 23:00 11/25/16 08:41 Cozaar PO 100 mg DAILY ELLIOT Administration Metoprolol Succinate 50 mg 11/24/16 10:58 11/25/16 08:40 Toprol Xl PO 50 mg DAILY ELLIOT Administration Pantoprazole Sodium 40 mg 11/23/16 16:00 11/25/16 06:08 Protonix PO 40 mg BIDAC ELLIOT Administration Polyethylene Glycol 17 gm 11/20/16 19:00 11/25/16 08:38 Miralax PO 17 gm DAILY ELLIOT Administration Senna 8.6 - 17.2 mg 11/20/16 19:00 11/25/16 08:40 Senokot PO 8.6 mg DAILY ELLIOT Administration Sodium Chloride 10 ml 11/19/16 17:25 11/24/16 17:05 Normal Saline Flush 0.9% IVP 10 ml PRN PRN Administration NEEDED PER PROVIDER ORDERS Sodium Chloride 10 ml 11/19/16 22:00 11/25/16 12:54 Normal Saline Flush 0.9% IVP 10 ml Q8HR ELLIOT Administration Trazodone HCl 75 mg 11/23/16 21:00 11/24/16 22:36 Desyrel PO 75 mg QPM ELLIOT Administration - Lab Result Fish Bone Diagrams: 11/24/16 05:31 11/24/16 05:31 - Additional Planning My Orders: My Active Orders 11/24/16 16:00 ALPRAZolam [Xanax] 0.25 mg PO TID 11/26/16 05:00 CBC - COMP BLD CT W/AUTO DIFF [HEME] DAILYLAB COMPREHENSIVE METABOLIC PANEL [CHEM] DAILYLAB 11/27/16 05:00 CBC - COMP BLD CT W/AUTO DIFF [HEME] DAILYLAB COMPREHENSIVE METABOLIC PANEL [CHEM] DAILYLAB 11/28/16 05:00 CBC - COMP BLD CT W/AUTO DIFF [HEME] DAILYLAB COMPREHENSIVE METABOLIC PANEL [CHEM] DAILYLAB Subjective - Subjective Patient Reports: Feeling Better, Resting Comfortably, Shortness of Breath (much improved) Nursing Reports: Shortness of Breath Objective Vital Signs: Vital Signs - 24 hr 11/24/16 11/24/16 11/24/16 16:37 17:12 17:20 Temperature 36.3 C L Heart Rate Heart Rate [ 73 Brachial] Respiratory 24 Rate Blood Pressure Blood Pressure 182/78 H 180/72 H [Left Brachial artery] Blood Pressure [Right Brachial artery] Blood Pressure [Right Radial artery] O2 Saturation 92 11/24/16 11/24/16 11/24/16 17:25 17:30 17:44 Temperature Heart Rate Heart Rate [ Brachial] Respiratory Rate Blood Pressure 174/86 H Blood Pressure [Left Brachial artery] Blood Pressure [Right Brachial artery] Blood Pressure 170/82 H 169/72 H [Right Radial artery] O2 Saturation 11/24/16 11/24/16 11/25/16 17:45 22:06 01:00 Temperature 36.6 C 36.7 C Heart Rate Heart Rate [ 73 78 71 Brachial] Respiratory 22 20 Rate Blood Pressure Blood Pressure [Left Brachial artery] Blood Pressure [Right Brachial artery] Blood Pressure 166/70 H 168/80 H 144/74 H [Right Radial artery] O2 Saturation 94 98 92 11/25/16 11/25/16 11/25/16 05:00 08:26 08:52 Temperature 37.5 C 36.4 C L Heart Rate 83 Heart Rate [ 81 78 Brachial] Respiratory 18 22 24 Rate Blood Pressure Blood Pressure [Left Brachial artery] Blood Pressure 160/80 H 187/79 H [Right Brachial artery] Blood Pressure [Right Radial artery] O2 Saturation 93 88 L 11/25/16 11/25/16 11/25/16 11:27 12:53 13:19 Temperature 36.4 C L Heart Rate Heart Rate [ 76 75 Brachial] Respiratory 24 Rate Blood Pressure 179/74 H Blood Pressure 179/74 H [Left Brachial artery] Blood Pressure 160/75 H [Right Brachial artery] Blood Pressure [Right Radial artery] O2 Saturation 94 11/25/16 11/25/16 13:20 13:54 Temperature Heart Rate Heart Rate [ 72 Brachial] Respiratory Rate Blood Pressure 160/75 H Blood Pressure [Left Brachial artery] Blood Pressure 155/75 H [Right Brachial artery] Blood Pressure [Right Radial artery] O2 Saturation Oxygen O2 Source Room air I&O (Last 24 Hrs): Intake and Output Totals x24h 11/23/16 11/24/16 11/25/16 23:59 23:59 23:59 Intake Total 1902 1451 700 Output Total 500 1400 850 Balance 1402 51 -150 General: Alert, Oriented x3, Cooperative HEENT: PERRLA Neck: No JVD, No thyromegaly Neuro: Alert, Oriented Times 3 Cardiovascular: Regular rate, Other Respiratory: Chest non-tender, No respiratory distress Abdomen: Soft, No tenderness Extremities: No cyanosis, No edema Skin: No rashes, No breakdown - Results Results: Laboratory Results WBC 9.1 x10^3/uL (4.8-10.8) 11/24/16 05:31 RBC 3.34 10^6/uL (4.70-6.10) L 11/24/16 05:31 Hgb 10.1 g/dL (14.0-18.0) L 11/24/16 05:31 Hct 29.7 % (42.0-52.0) L 11/24/16 05:31 MCV 88.9 fL (80.0-94.0) 11/24/16 05:31 MCH 30.3 pg (27.0-31.0) 11/24/16 05:31 MCHC 34.1 g/dL (32.0-36.0) 11/24/16 05:31 RDW 13.6 % (12.0-15.0) 11/24/16 05:31 Plt Count 264 10^3/uL (130-450) 11/24/16 05:31 MPV 7.3 fL (7.4-11.4) L 11/24/16 05:31 Neut # 6.4 10^3/uL (1.5-6.6) 11/24/16 05:31 Lymph # 1.4 10^3/uL (1.5-3.5) L 11/24/16 05:31 [place] # 0.9 10^3/uL (0.0-1.0) 11/24/16 05:31 Eos # 0.4 10^3/uL (0.0-0.7) 11/24/16 05:31 Baso # 0.1 10^3/uL (0.0-0.1) 11/24/16 05:31 Absolute Nucleated RBC 0.01 x10^3/uL 11/24/16 05:31 Nucleated RBCs 0.1 /100WBC 11/24/16 05:31 VBG pH 7.419 (7.31-7.41) H 11/22/16 05:35 VBG pCO2 35.4 mmHg (41-51) L 11/22/16 05:35 VBG pO2 46.9 mmHg (25-47) 11/22/16 05:35 VBG HCO3 22.4 mmol/L (23-28) L 11/22/16 05:35 VBG Total CO2 23.5 mmol/L (24-29) L 11/22/16 05:35 VBG O2 Saturation 84.7 % (60-80) H 11/22/16 05:35 VBG Base Excess -1.7 mmol/L (-2 - +2) 11/22/16 05:35 Sodium 138 mmol/L (135-145) 11/24/16 05:31 Potassium 4.4 mmol/L (3.5-5.0) 11/24/16 05:31 Chloride 107 mmol/L (101-111) 11/24/16 05:31 Carbon Dioxide 21 mmol/L (21-32) 11/24/16 05:31 Anion Gap 10.0 (6-13) 11/24/16 05:31 BUN 31 mg/dL (6-20) H 11/24/16 05:31 Creatinine 2.0 mg/dL (0.6-1.2) H 11/24/16 05:31 Estimated GFR (MDRD) 34 (>89) L 11/24/16 05:31 Glucose 70 mg/dL (70-100) 11/24/16 05:31 POC Whole Bld Glucose 230 mg/dL (70 - 100) H 11/25/16 11:23 Glycated Hemoglobin 9.1 % (4.6-6.2) H 11/20/16 12:13 Estim Average Glucose 214 (70-100) H 11/20/16 12:13 Calcium 8.2 mg/dL (8.5-10.3) L 11/24/16 05:31 Ionized Calcium YES 11/19/16 22:35 Phosphorus 3.8 mg/dL (2.5-4.6) 11/20/16 04:44 Magnesium 1.9 mg/dL (1.7-2.8) 11/20/16 04:44 Total Bilirubin 0.5 mg/dL (0.2-1.0) 11/24/16 05:31 AST 34 IU/L (10-42) 11/24/16 05:31 ALT 32 IU/L (10-60) 11/24/16 05:31 Alkaline Phosphatase 84 IU/L (42-121) 11/24/16 05:31 Troponin I 0.04 ng/mL (<0.49) 11/19/16 16:00 B-Natriuretic Peptide 639 pg/mL (5-100) H 11/20/16 16:53 Total Protein 7.1 g/dL (6.7-8.2) 11/24/16 05:31 Albumin 2.9 g/dL (3.2-5.5) L 11/24/16 05:31 Globulin 4.2 g/dL (2.1-4.2) 11/24/16 05:31 Albumin/Globulin Ratio 0.7 (1.0-2.2) L 11/24/16 05:31 Lipase 11 U/L (22-51) L 11/19/16 16:00 Serum Ketones MODERATE (NEGATIVE) H 11/19/16 16:00
[2016-11-25] MEDS: HYDROcod/ACETAM 5/325 MG TABLET PO PRN (16:35)
[2016-11-25] MEDS: AMITRIPTYLINE 25 MG TABLET PO SCH (21:17)
[2016-11-25] MEDS: traZODone 50 MG TABLET PO SCH (21:17)
[2016-11-26] MEDS: PIPERACILLIN/TAZOBACTAM 3.375 GM in SODIUM CHLORIDE 0.9% MINIBAG 100 ML IV SCH ×2 (04:15→12:51)
[2016-11-26] MEDS: SODIUM CHLORIDE FLUSH 0.9% 10 ML SYRINGE IVP SCH (04:16)
[2016-11-26 06:10] LABS: BASOPHILS % (AUTO) 0.6 %; EOSINOPHILS # (AUTO) 0.4 10^3/uL (0.0-0.7); EOSINOPHILS % (AUTO) 4.9 %; HCT - HEMATOCRIT 27.1 % (42.0-52.0); LYMPHOCYTES # (AUTO) 1.2 10^3/uL (1.5-3.5); LYMPHOCYTES % (AUTO) 14.6 %; MEAN CORPUSCULAR HEMOGLOBIN 29.5 pg (27.0-31.0); MEAN CORPUSCULAR HGB CONC 33.1 g/dL (32.0-36.0); MEAN CORPUSCULAR VOLUME 89.4 fL (80.0-94.0); MEAN PLATELET VOLUME 7.3 fL (7.4-11.4); MONOCYTES # (AUTO) 0.9 10^3/uL (0.0-1.0); MONOCYTES % (AUTO) 10.2 %; NEUTROPHILS # (AUTO) 5.9 10^3/uL (1.5-6.6); NEUTROPHILS % (AUTO) 69.7 %; RED BLOOD COUNT 3.04 10^6/uL (4.70-6.10); RED CELL DISTRIBUTION WIDTH 13.6 % (12.0-15.0); UNCORRECTED WHITE BLOOD COUNT 8.5 x10^3/uL; WHITE BLOOD COUNT 8.5 x10^3/uL (4.8-10.8)
[2016-11-26 06:18] LABS: ALBUMIN/GLOBULIN RATIO 0.7 (1.0-2.2); BILIRUBIN,TOTAL 0.5 mg/dL (0.2-1.0); CREATININE 2.1 mg/dL (0.6-1.2); POTASSIUM 4.4 mmol/L (3.5-5.0); TOTAL PROTEIN 6.2 g/dL (6.7-8.2)
[2016-11-26] MEDS: ALPRAZolam 0.25 MG TABLET PO SCH ×2 (06:28→14:15)
[2016-11-26] MEDS: PANTOPRAZOLE 40 MG TABLET PO SCH (06:28)
[2016-11-26] MEDS: ALBUTEROL NEB 2.5 MG/3 ML INH PRN (08:18)
[2016-11-26] MEDS: BUDESONIDE 0.5 MG/2 ML NEB INH SCH (08:18)
[2016-11-26] MEDS: INSULIN ASPART 300 UNIT/3 ML PEN SUBQ SCH ×4 (08:20→12:54)
--- NOTE | 2016-11-26 08:55 | CT Report ---
CT CHEST WITHOUT CONTRAST: 11/26/2016 CLINICAL INDICATION: Pneumonia. TECHNIQUE: Axial CT images of the chest were obtained without contrast, due to patient's renal dysfu nction. In accordance with CT protocol optimization, one or more of the following dose reduction techniques w ere utilized for this exam: automated exposure control, adjustment of mA and/or KV based on patient size, or use of iterative reconstructive technique. COMPARISON: 11/24/2016 FINDINGS: The heart and great vessels demonstrate mild atherosclerotic calcifications. There is a r ight paratracheal lymph node measuring 2.0 x 1.6 cm, and other mildly enlarged mediastinal lymph node s are noted. There are infiltrates in the right upper and bilateral lower lobes, with small effusion s. Patchy air-space disease is seen in the right middle lobe as well. No pneumothorax. Osseous str uctures demonstrate degenerative changes. Limited evaluation of upper abdominal structures is unrema rkable. IMPRESSION: RIGHT UPPER AND BILATERAL LOWER LOBE INFILTRATES, WITH SMALL EFFUSIONS AND MILD MEDIASTI NAL ADENOPATHY. JOB #: [id number] EXT JOB #:[id number]
[2016-11-26] MEDS: METOPROLOL SUCCINATE 50 MG TABLET PO SCH (09:45)
[2016-11-26] MEDS: SENNA 8.6 MG TABLET PO SCH (09:45)
[2016-11-26] MEDS: LOSARTAN 50 MG TABLET PO SCH (09:45)
[2016-11-26] MEDS: levoFLOXacin 250 MG TABLET PO SCH (09:45)
[2016-11-26] MEDS: DOCUSATE SODIUM 250 MG CAPSULE PO SCH (09:45)
[2016-11-26] MEDS: ASPIRIN 325 MG TABLET PO SCH (09:45)
[2016-11-26] MEDS: ATORVASTATIN 40 MG TABLET PO SCH (09:46)
[2016-11-26] MEDS: POLYETHYLENE GLYCOL 3350 17 GM PACKET PO SCH (09:46)
[2016-11-26] MEDS: amLODIPine 5 MG TABLET PO SCH (09:46)
[2016-11-26] MEDS: FUROSEMIDE 20 MG TABLET PO SCH (09:46)
[2016-11-26] MEDS: INSULIN GLARGINE 300 UNIT/3 ML PEN SUBQ SCH (09:47)
--- NOTE | 2016-11-26 13:37 | Discharge Plan ---
Discharge Plan Disposition: Home, Self Care Condition: Good Prescriptions: Amox/Clav 875/125 [Augmentin] 1 each PO Q12H #18 tablet Diet: Diabetic Activity Restrictions: Activity as Tolerated Shower Restrictions: No Driving Restrictions: No Weight Bearing: Full Weight Additional Instructions or Follow Up instructions: Please make a follow up appt with Dr. Chaney in the next 2 weeks. Monitor your blood sugars at least 2 times a day, in am and before dinner. Finish your antibiotic please. Thank you, Dr. Samuel No Smoking: If you smoke, Please STOP! Call for help. Follow-up with: Azalea Chaney MD [Primary Care Provider] - 2 Weeks
--- NOTE | 2016-11-26 15:19 | DISCHARGE SUMMARY ---
DATE OF ADMISSION: 11/20/2016 DATE OF DISCHARGE: 11/26/2016 PRIMARY CARE PHYSICIAN: Azalea Chaney M.D. ADMISSION DIAGNOSES The patient's admission diagnoses were: 1. Dehydration. 2. Acute kidney injury. 3. Hyperkalemia. 4. Hyperglycemia secondary to type 2 diabetes. 5. Hypertension. 6. Hyponatremia. 7. Upper respiratory infection. 8. Asthma. 9. Obstructive sleep apnea. DISCHARGE DIAGNOSES The patient's discharge diagnoses are: 1. Pneumonia. 2. Acute kidney injury on chronic kidney disease. 3. Hyperkalemia, resolved. 4. Type 2 diabetes, uncontrolled, with improvement in the hospital. 5. Hypertension, with poor control. 6. Hyponatremia, resolved. 7. Upper respiratory tract infection. 8. Asthma, with improvement. 9. Obstructive sleep apnea: On continuous positive airway pressure. In need of a new sleep study and continuous positive airway pressure machine. SPECIAL PROCEDURES He had a venous duplex ultrasound which showed no evidence for DVT. He had a chest CT, which showed right upper and bilateral lower lobe infiltrates, with small effusions and mild mediastinal adenopathy. The patient needs a repeat CT scan in four to six weeks. The echocardiogram interpretation: 1. Moderate concentric left ventricular hypertrophy. 2. Overall left ventricular systolic function normal, with an EF of 65% to 70%. 3. Pseudo LV filling pattern consistent with grade 2 diastolic function. 4. Right ventricular systolic function normal. 5. Mildly abnormal right heart pressures. 6. RVSP rest was 43 mmHg. HOSPITAL COURSE AND MANAGEMENT: The initial presentation, the hospital evaluation in the emergency department, and the Hospitalist's plan are well described in the history and physical. See a copy of the same. In summary, In summary, the patient is a 61-year-old gentleman who has a past medical history for hypertension, hyperlipidemia, coronary artery disease status post three stents, poorly controlled diabetes, obstructive sleep apnea on CPAP, peripheral neuropathy, retinopathy, chronic kidney disease, and asthma. He presented to the emergency department with a chief complaint of difficulty breathing. The patient woke up in the morning with URI symptoms and mucus, and could not get a deep breath. The patient was seen in the emergency department. It was shown he was dehydrated, with hyperkalemia and a creatinine of 2.3, up from a baseline of 1.3 the year before, and a glucose of 542. The patient was treated for the conditions above and had improvement rather rapidly of his potassium. His creatinine only improved to 1.9 and stabilized at 2.0 to 2.1. The patient was placed on an insulin drip because of his high glucose. He was placed in the ICU. The initial chest x-ray did not show an infiltrate. However, on repeat chest x-ray, he had an infiltrate, and this subsequently showed infiltrates in the lower lobes. Subsequently, he had a chest x-ray on 11/24/2016 which an infiltrate in the upper lobes. A chest CT, as described above, showed infiltrates bilaterally in the lower lobes and right upper lobe. The patient was started on Levaquin antibiotic, which was on 2016. Zosyn was added. The patient struggled with his breathing and had difficulty in getting a deep breath a couple of days. Some part of this could have been anxiety, which the patient confirmed. The patient was given low dose Xanax for 3 days and had marked improvement. The patient was ambulated on the day of discharge and found to have his oxygen stay or 90% or above; therefore, not qualifying for oxygen. PHYSICAL EXAMINATION VITAL SIGNS: On the day of discharge, his physical exam showed a temperature of 36.8, 71, 146/66, 18, and 91% room air saturation. EYES: Extraocular movements are within normal limits. PERRL. Nonicteric. CONSTITUTIONAL: An obese male who appears his stated age. No acute distress at this time. MOUTH AND THROAT: Moist mucous membranes. No other pathology noted. NECK: No lymphadenopathy. No thyromegaly. No JVD. CHEST: Heart reveals a normal sinus rhythm. No murmur, rubs, or clicks. LUNGS: Fair air movement. No wheezes, rales, or rhonchi heard. Diminished breath sounds at the bases. ABDOMEN: Very thick abdominal wall. Soft and nontender. RECTAL/GENITAL: Exams are not done. EXTREMITIES: Trace to 1+ edema. Palpable pulses on the posterior tibial vascular exam. No cyanosis. Normal capillary refill. NEUROLOGICAL: Cranial nerves are intact, as tested. Motor normal. Cognitive intact. LABORATORY DATA: The patient's laboratory data revealed the patient had a white count of 8.5, 9 and 27 hemoglobin and hematocrit, and platelets 251. Sodium 138, potassium 4.4, chloride 107, CO2 23, BUN 35, creatinine 2.1, glucose 143. The patient's calcium was 8.0. Albumin 3.5. Normal liver enzymes. Albumin was low at 2.5. ALLERGIES: SULFA. MEDICATIONS 1. Regular insulin [id number] 125 units at 9 o'clock, 1300, 1700, and 2200. 2. Trazodone 75 mg at bedtime. 3. Metoprolol 100 mg daily. 4. Aldactone 25 mg a day. 5. Nexium 40 mg a day. 6. Cozaar 100 mg a day. 7. Atorvastatin 80 mg a day. 8. Aspirin 325 a day. 9. Amlodipine 50 mg p.o. every p.m. 10. Amitriptiline 50 mg given p.m. 11. Amoxicillin/clavulanic acid 1 pill b.i.d. for 9 days. FOLLOWUP: The patient's discharge is to Azalea Chaney M.D. DISCHARGE ISSUES INCLUDE 1. Improved diabetic control and hypertension control. 2. Respiratory monitoring. 3. Follow up chest CT in four to six weeks or at least two weeks after he is cleared. 4. Reevaluation of his obstructive sleep apnea with a sleep study and new CPAP. In the interim, new materials for his filter. 5. The patient may need some intensive coaching to get him more compliant with his diabetic regimen and medications to control his several problems, including his activity and diabetic control, and improving his obstructive sleep apnea. JOB #: [id number] EXT JOB #:[id number] MTDD
[2016-11-26 16:50] VITALS: BP 181/80
== END 2016-11-26 15:45 | disposition home or self-care (01) | DRG 682 ==
LOC: ED 15:12 → ICU 17:25 → INTOOBSV 17:25 → OBSVTOIN 11-20 10:59 → MS 11-20 13:46
PROVIDERS: ADMIT Internal Medicine; ATTEND Internal Medicine
DX: N17.9 Acute kidney failure, unspecified (principal); J18.1 Lobar pneumonia, unspecified organism; J45.21 Mild intermittent asthma with (acute) exacerbation; I13.0 Hypertensive heart and chronic kidney disease with heart failure and stage 1 through stage 4 chronic kidney disease, or unspecified chronic kidney disease; I50.30 Unspecified diastolic (congestive) heart failure; E87.1 Hypo-osmolality and hyponatremia; E87.5 Hyperkalemia; E11.65 Type 2 diabetes mellitus with hyperglycemia; G47.33 Obstructive sleep apnea (adult) (pediatric); E86.0 Dehydration; E86.1 Hypovolemia; R09.02 Hypoxemia; T38.3X6A Underdosing of insulin and oral hypoglycemic [antidiabetic] drugs, initial encounter; T46.1X6A Underdosing of calcium-channel blockers, initial encounter; T46.5X6A Underdosing of other antihypertensive drugs, initial encounter; E11.319 Type 2 diabetes mellitus with unspecified diabetic retinopathy without macular edema; E11.42 Type 2 diabetes mellitus with diabetic polyneuropathy; E11.22 Type 2 diabetes mellitus with diabetic chronic kidney disease; N18.9 Chronic kidney disease, unspecified; E78.5 Hyperlipidemia, unspecified; I25.10 Atherosclerotic heart disease of native coronary artery without angina pectoris; F41.9 Anxiety disorder, unspecified; E66.9 Obesity, unspecified; I27.2 Other secondary pulmonary hypertension; I25.2 Old myocardial infarction; Z95.5 Presence of coronary angioplasty implant and graft; Z79.4 Long term (current) use of insulin; Z79.82 Long term (current) use of aspirin; Z91.128 Patient's intentional underdosing of medication regimen for other reason; Z86.14 Personal history of Methicillin resistant Staphylococcus aureus infection; Z91.11 Patient's noncompliance with dietary regimen; Z68.38 Body mass index [BMI] 38.0-38.9, adult
CPT/HCPCS: 36415; 71010; 71020; 71250; 76770; 80048; 80053; 82009; 82040; 82330; 82803; 82947; 83036; 83690; 83735; 83880; 84100; 84484; 85025; 87150; 93005; 93010; 93306; 94640; 96360; 96372; 99284; 99285

== ENCOUNTER 2016-11-27 12:20 | Outpatient (CLI) | payer BC | END 2016-11-27 12:21 | disposition EMS.NT | LOC: EMS 12:20 | PROVIDERS: ATTEND Surgery ==